=== PATIENT | male | born 1955 | race Caucasian/White ===

== ENCOUNTER 2022-01-21 07:04 | Outpatient (CLI) | payer MEDICARE, SELFPAY ==
--- NOTE | 2022-01-21 07:15 | MR_ITS ---
[address] [address] Phone:?[phone] Fax:?[phone] Referring Physician Information: Joseph Hidalgo M.D. [address] [facility] [address] Phone:?[phone] Fax:?[phone] Patient:Slava Julien D.O.B:?1955 Sex:?Male Phone:?[phone] [facility] MRN:[id number] Exam Date:?01/21/2022 ? EXAM: MRI EXAMINATION OF THE RIGHT KNEE CLINICAL INFORMATION: Right knee pain. No specific injury. History of surgery. TECHNICAL INFORMATION: Coronal PD and STIR. Axial PD and T2 fat saturation. Sagittal PD and PD fat saturation images acquired. INTERPRETATION: Bones: Marked subchondral edema signal and more mild subchondral cystic change involves the weightbearing surface of the medial tibial plateau. Few subchondral cystic changes involving the patellofemoral compartment. No occult fracture or AVN. No other abnormal bone marrow edema pattern is identified. Ligaments and tendons: The medial collateral ligament is intact, without acute sprain or tear. The iliotibial band, fibular collateral ligament, biceps femoris tendon and popliteus tendon all are intact. The anterior cruciate ligament is intact without acute sprain or tear. The posterior cruciate ligament is intact. Extensor Mechanism: The patellar and quadriceps tendons are intact. The medial and lateral retinacula are intact. Knee Joint: There is a moderate size knee joint effusion. No discrete popliteal cyst. Changes of synovitis within the joint, without evidence for a loose body. Medial Compartment: Thickened and irregular, predominant horizontal tearing involves the body of the medial meniscus. There is a complex appearance of tearing throughout the posterior horn as well as continuing into the posterior root insertion. No displaced flap fragment or parameniscal cyst. There are grade 3 and 4 changes of chondromalacia along the mid to peripheral weight-bearing surface of the medial tibial plateau. Broad grade III chondromalacia involves the femoral condyle. Lateral Compartment: Series 7 images 22 and 23 there is a 4 to 5 mm segment of shallow superior surface tear involving the inner portion of the body of the lateral meniscus. No displaced flap fragment or parameniscal cyst. There is no focal chondral defect. No other significant changes of chondromalacia. Patellofemoral articulation: There are grade 2 changes of chondromalacia along the central midline patella and directly adjacent portions of the medial and lateral facets. There is a 1.5 cm craniocaudal by 0.5 cm mediolateral segment of grade 3 and IV chondromalacia of the lateral trochlear groove. CONCLUSION: 1. Tearing throughout the body and posterior horn of the medial meniscus. 2. 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 Marked subchondral edema signal and more mild subchondral cystic change involves the tibial plateau. 3. There is a small and shallow segment of tearing involving the inner portion of the body lateral meniscus. No lateral compartment chondromalacia. 4. Patellofemoral chondromalacia includes a moderate-sized segment of grade III and IV involvement of the lateral trochlear groove. 5. There is a moderate knee joint effusion with synovitis. KES Electronically signed on 01/21/2022 12:39:00 PM by Sushil Cyr M.D.
== END 2022-01-21 07:05 | disposition home or self-care (01) ==
LOC: MRI 07:05
PROVIDERS: PCP Internal Medicine; Visit Provider Orthopaedic Surgery
DX: M25.561 Pain in right knee (principal); M23.221 Derangement of posterior horn of medial meniscus due to old tear or injury, right knee; M94.261 Chondromalacia, right knee; M23.200 Derangement of unspecified lateral meniscus due to old tear or injury, right knee; M25.461 Effusion, right knee
CPT/HCPCS: 73721

== ENCOUNTER 2022-02-17 13:46 | Outpatient (RCR) | payer MEDICARE, SELFPAY ==
--- NOTE | 2022-02-18 12:19 | PT.OPEX ---
PT [facility] PT [facility] Eval Start: 02/17/22 15:33 Freq: Status: Active Protocol: Document 02/17/22 15:34 CARLTON (Rec: 02/17/22 15:35 CARLTON [id number]) E-signed By Myron Ohara DPT, MS Physical Therapy Outpatient Evaluation Insurance Information Recert Due Date 05/18/22 Insurance Name Medicare B Medical Diagnosis Unilateral primary osteoarthritis, right knee Treating Diagnosis Decreased R knee ROM and R LE flexibility, R LE weakness, imbalance, gait dysfunction. Subjective Subjective Patient presents to PT with c/ o chronic B (R>L) knee pain over the past 6-8 months of insidious origin. Describes long hx of episodic B knee pain with previous R meniscectomy 20 years ago. Sxs have improved over the past 2 weeks since MD visit with decreased swelling and tightness. Describes sxs as sharp pain and tightness across B medial knees and patella. Moved from [place] with home renovations causing elevated sxs. Very difficult to climb stairs and squat. MRI of R knee on 01/21/22 found shows degenerative tearing of the medial meniscus with extrusion. There is grade 4 change on the medial tibial plateau with subchondral bone marrow edema and a subchondral cyst. There is grade 3 change on the medial femoral condyle. There is grade 3 change booth attendant the median ridge of the patella with a subchondral cyst. There is a subchondral cyst over the lateral aspect of the trochlea . The cruciate and collateral ligaments are intact. The extensor mechanism is normal. There is tearing of the lateral meniscus. Has not had imaging on his L knee but MD suspects L knee OA. PMH includes DM-II, B knee OA, depression and HTN. Aggravating activities: walking, standing, squatting, stair climbing, up<>down from ground. Relieving: rest, ice Pain Comments 11/01 Current Work Status Bottling Line Attendant Occupation Volunteer work; retired Precautions Therapy Limitations/Systems Review Not Limited Objective Functional Test Performed & Score LEFS: 58 Assessment Assessment/Impression Objectively pt displays decreased B (R>L) knee ROM and B LE flexibility, B LE weakness, imbalance and gait dysfunction. MRI evidence of R knee OA, medial and lateral meniscus tears. Excellent response to recumbent biking and heel slides with improved B knee flexibility and minimal sxs with walking following. Instructed pt in proper gym machine setup and use with excellent response to LE strengthening exercises that avoid strain on the knee. He will benefit from continued skilled PT intervention, progressing as able. Primary Functional Limitations Walking, standing, squatting, stair climbing, up<>down from ground Plan of Care Rehabilitation Potential Good Physical Therapy Goals Within 10 weeks: 1. Patient will be independent and compliant in HEP 2. Patient will be able to walk >10 minutes with R knee pain <3/10 to improve cardiovascular health. 3. Pt will display improved B hip ABD and ext strength of >/ =4+/5 to improve quality of gait and tolerance to yardwork activities. 4. Patient will report >50% improvement in LEFS questionnaire to significantly improve caridad to daily activities. Coordination/Communication With Referral Source Treatment Plan/Direct Interventions Joint Mobilization,Manual Therapy,Neuromuscular Re-ed, Therapeutic Exercises Frequency/Duration 1x per week for 6-10 weeks Patient Will Be Discharged From Therapy Completion of LTG(s),Skills Plateau,Independent w/HEP, Independently Progressing Evaluation Billing Untimed Code Treatment Minutes 24 Complexity Moderate Certification Information Initial Certification Date 02/17/22 Ending Certification Date 05/18/22 Provider Signature Shows Agreement With POC & Medical Necessity Physician Comment/Change Comment or Changes Physician NPI Number #
== END 2022-09-18 15:58 | disposition home or self-care (01) ==
PROVIDERS: PCP Internal Medicine; Visit Provider Orthopaedic Surgery
DX: M17.11 Unilateral primary osteoarthritis, right knee (principal); R26.9 Unspecified abnormalities of gait and mobility; Z51.89 Encounter for other specified aftercare
CPT/HCPCS: 97110; 97162

== ENCOUNTER 2022-07-15 07:31 | Outpatient (CLI) | payer MEDICARE, SELFPAY ==
[2022-07-15 10:59] LABS: Albumin* 4.1 g/dL (3.3-5.0)
[2022-07-15 11:00] LABS: Chloride* 103 mmol/L (96-114); Potassium* 4.3 mmol/L (3.6-5.1); Sodium* 137 mmol/L (135-149)
[2022-07-15 11:02] LABS: Bilirubin Total* 0.7 mg/dL (0.1-1.5); Carbon Dioxide* 27 mmol/L (20-32); Cholesterol* 121 mg/dL (90-199); Creatinine* 0.8 mg/dL (0.5-1.5); Estimated Glomerular Filt Rate 98 ml/min
[2022-07-15 11:03] LABS: Alanine Aminotransferase* 64 U/L (4-50); Alkaline Phosphatase* 99 U/L (40-150); Aspartate Amino Transferase* 45 U/L (12-35); Blood Urea Nitrogen* 15 mg/dL (7-30); Glucose* 166 mg/dL (60-115); Total Protein* 6.7 g/dL (6.0-8.3); Triglycerides* 199 mg/dL (40-149)
[2022-07-15 11:04] LABS: HDL Cholesterol* 44 mg/dL (>=40); LDL Cholesterol Calculated 37 mg/dL (<100)
[2022-07-15 11:13] LABS: Creatinine Urine 108.7 mg/dL
[2022-07-15 11:17] LABS: Microalbumin Creatinine Ratio 0 mg/g (0-30); Microalbumin Urine 1 mg/dL
== END 2022-07-15 07:32 | disposition home or self-care (01) ==
LOC: NFLDREF 07:31
PROVIDERS: PCP Internal Medicine; Visit Provider Internal Medicine
DX: E11.9 Type 2 diabetes mellitus without complications (principal)
CPT/HCPCS: 80053; 80061; 82043; 82570

== ENCOUNTER 2022-09-04 06:15 | Day surgery (SDC) | payer MEDICARE, SELFPAY ==
[2022-09-04] VITALS (12 sets, daily range): BP systolic 110–134; BP diastolic 58–99; PULSE 65–86; RESP 16; TEMP 36.5–36.6; O2SAT 93–98; BMI 33.1
--- OUTSIDE RECORDS SUMMARY | 2022-09-04 06:18 | XMS_ITS | Summary of Care ---
Author Name Unknown Address [address] , [place] [address] Phone Organization [facility] Address [address] , [place] [address] Phone Care Team Providers Care Human Resources Supervisor Name Role Phone ERWIN BOLANOS D.O. Unavailable Unavailab NIRAJ Barnes Unavailable Unavailable Unavailable Unavailable Unavailable Functional Status Functional Status Health Issues Name Dates Details Functional status health iss ues are not documented Status: Cognitive Status Health Issues Name Dates Details Cognitive status health issu es are not documented Status: Problems Name Dates Details Diabetes mellitus(250.00, E1 1.9) Status:Active Dyslipidemia(272.4, E78.5) Status:Active Paroxysmal atrial fibrillati on(427.31, I48.0) Status:Active LETTY on CPAP(327.23, G47.33) Status:Active Medications Name Dates Details * Start :30-Nov-2018 Active metFORMIN HCl - 1000 MG Oral Tablet TAKE 1 TABLET(S) BY MOUTH 2 TIMES A DAY * Quantity:60 Refills:0 * Start :30-Nov-2018 Active Atorvastatin Calcium 10 MG Oral Tablet TAKE 1 TABLET DAILY DIRECTED. * Quantity:30 Refills:0 * Start :30-Nov-2018 Active Medications Administered Name Dates Details Medication Administration no t documented Allergies and Adverse Reactions Name Dates Details No Known Allergies(Allergy) Stat us:Active Procedures Procedure Dates Details History of Vasectomy Completed History of Laparoscopy Completed History of Adenoidectomy Complet ed History of Tonsillectomy Complet ed History of Arthroscopy Completed Immunization Name Dates Details Immunizations not documented Social History Name Dates Details - Status: Smoking Status Name Dates Details Never smoker Vital Signs Date Test Result Details 80-Lkb-070326:00 BP Systolic 110mm[Hg] Status: Results Date Description Value Details [id number] Risk of Stroke [id number] - Risk of Stroke 0.6 % Comments:Age: 63 YearsSex: MCongestive Heart Failure: NoHypertension: NoStroke/TIA/Thromboembolis m: NoVascular Disease: NoDiabetes Mellitus: Yes [id number] - Score 1 Comment s:Age: 63 YearsSex: MCongestive Heart Failure: NoHypertension: NoStroke/TIA/Thromboembolis m: NoVascular Disease: NoDiabetes Mellitus: Yes [id number] - Risk Category Low-Moderate Comments:Age: 63 YearsSex: MCongestive Heart Failure: NoHypertension: NoStroke/TIA/Thromboembolis m: NoVascular Disease: NoDiabetes Mellitus: Yes [id number] - Margo tive Risk For Age And Gender 0 % Comments:Age: 63 YearsSex: MCongestive Heart Failure: NoHypertension: NoStroke/TIA/Thromboembolis m: NoVascular Disease: NoDiabetes Mellitus: Yes Plan of Care Name Dates Details Planned Observations Planned Goals not documented Instructions Name Dates Details Instructions not documented Encounters No Encounter data documented Encounter Diagnosis:Problem not documented On:28-Dec-2018
--- OUTSIDE RECORDS SUMMARY | 2022-09-04 06:18 | XMS_ITS | Summary of Care ---
Author Name Unknown Address [address] , [place] [address] Phone Organization [facility] Address [address] , [place] [address] Phone Care Team Providers Care Stock Wetter Name Role Phone ERWIN BOLANOS D.O. Unavailable Unavailab NIRAJ Barnes Unavailable Unavailable Functional Status Functional Status Health Issues Name Dates Details Functional status health iss ues are not documented Status: Cognitive Status Health Issues Name Dates Details Cognitive status health issu es are not documented Status: Problems Name Dates Details Active medical history not d ocumented Status: Medications Name Dates Details * Start :30-Nov-2018 Active Truvada 200-300 MG Oral Tablet TAKE 1 TABLET DAILY. * Refills:0 * Start :30-Nov-2018 Active Clobetasol Propionate 0.05 % External Cream APPLY SPARINGLY TO AFFECTED AREA(S) TWICE DAILY * Refills:0 * Start :30-Nov-2018 Active metFORMIN HCl - 1000 MG Oral Tablet TAKE 1 TABLET(S) BY MOUTH 2 TIMES A DAY * Quantity:60 Refills:0 * Start :30-Nov-2018 Active Escitalopram Oxalate 10 MG Oral Tablet TAKE 1 TABLET DAILY. * Refills:0 * Start :30-Nov-2018 Active Atorvastatin Calcium [...] smoker Vital Signs Date Test Result Details No Known Vitals to report Results Date Description Value Details Results not documented Plan of Care Name Dates Details Planned Observations Planned Goals not documented Instructions Name Dates Details Instructions not documented Encounters No Encounter data documented Encounter Diagnosis:Problem not documented On:30-Nov-2018
--- OUTSIDE RECORDS SUMMARY | 2022-09-04 06:18 | XMS_ITS ---
Author Name KAI MCKEON Address Unknown Organization Unknown Address Unknown Care Team Providers Care Wildlife Refuge Manager Name Role Phone KAI MCKEON Consulting Provider Unavailable NIRAJ KILGORE Referring Provider Unavailable Problems Description Status Code Diagnosis Date Las t Modified Date Type Source No Data Available Procedures Procedure Code Date Disposition Source No Data Available Allergies, Adverse Reactions, Alerts Type Code Date Description Agent Reaction Status Renetta rce No Data Available Immunizations Vaccine Disposition Route Site Code Date Lot# Manu facturer Name Amount/Unit Source No Data Available Vital Signs Date Height/Length Weight BMIBMI Blood Pressure No Data Available Social History Description Status Code Start Date Quit Date Source No Data Available Medications Drug Name Code Date Form Strength Route Quantity Refills Instruction Status Source No Data Available Results Test Date Status Source No Data Available Plan of Care Notes Date None Specified Description Code Date No Data Available Description Code Date No Data Available Description Code Date No Data Available Provider Date Location No Data Available Reason For Visit Date Reason No Data Available Instructions Patient was supplied with ed ucational material on: No Data Available Instruction Date No Data Available Medications Administered Drug Name Code Date Dosage Strength Route Quantity Sta tus
--- OUTSIDE RECORDS SUMMARY | 2022-09-04 06:18 | XMS_ITS | Summary of Care ---
Author Name Unknown Address [address] , [place] [address] Phone Organization [facility] Address [address] , [place] [address] Phone Care Team Providers Care Digital Camera Technician Name Role Phone ERWIN BOLANOS D.O. Unavailable Unavailab NIRAJ Barnes Unavailable Unavailable Unavailable Unavailable Unavailable Reason for Visit * Health Issues Reviewed: * Diabetes mellitus * Dyslipidemia * Paroxysmal atrial fibrillation * LETTY on CPAP Functional Status Functional Status Health Issues Name [...] smoker Vital Signs Date Test Result Details [id number]-[id number]:00 BP Systolic 110mm[Hg] Status: Results Date Description Value Details [id number] Risk of Stroke [id number] - Risk of Stroke 0.6 % Comments:Age: 63 YearsSex: MCongestive Heart Failure: NoHypertension: NoStroke/TIA/Thromboembolis m: NoVascular Disease: NoDiabetes Mellitus: Yes [id number] - Score 1 Comment s:Age: 63 YearsSex: MCongestive Heart Failure: NoHypertension: NoStroke/TIA/Thromboembolis m: NoVascular Disease: NoDiabetes Mellitus: Yes [id number] - Risk Category Low-Moderate Comments:Age: 63 YearsSex: MCongestive Heart Failure: NoHypertension: NoStroke/TIA/Thromboembolis m: NoVascular Disease: NoDiabetes Mellitus: Yes [id number] - Margo tive Risk For Age And Gender 0 % Comments:Age: 63 YearsSex: MCongestive Heart Failure: NoHypertension: NoStroke/TIA/Thromboembolis m: NoVascular Disease: NoDiabetes Mellitus: Yes Plan of Care Name Dates Details Planned Observations Planned Goals not documented Interventions Provided Instructions* Please follow the verbal and/or written education/instructions provided at your visit.; Done: 01 Dec 2018 Plan* FOLLOW UP: * Cardiology: [ ] or sooner if needed. * Primary Care: As previously directed. * If symptoms worsen and become severe, call 911 or go into the nearest Emergency Department. * Please see orders for plans * This medical document was created using an electronic medical record system with [employer] dictation system. Although this document has been carefully reviewed, there may still be some phonetic typographical errors. These areas are purely typographical due to imperfections of the software programs and do not reflect any compromise in the patient's medical care. Discussion/Summary* Today we reviewed the patient's medication, side effects benefits and needs to continue. We also reviewed plan for continuing follow- up. Please see orders * Will obtain records from other physicians and any hospital testing. Instructions Name Dates Details Instructions not documented Encounters No Encounter data documented Encounter Diagnosis:Problem not documented On:01-Dec-2018
--- OUTSIDE RECORDS SUMMARY | 2022-09-04 06:19 | XMS_ITS | Summary of Care ---
Author Name Unknown Organization [facility] Address [address] [place] [address] Care Team Providers Care Batch Or Continuous Still Operator Name Role Phone Unavailable Primary Care Provider Unavailabl e Reason for Visit * Reason Comments Device Check (Remote) Encounter Details Date Type Department Care Team Description 06/18/2021 Implant Monitor [facility] [address] [place] [address] Darshan Centeno MD [address] [place] [address] Encounter for loop recorder check (Primary Dx); Paroxysmal atrial fibrillation; History of loop recorder Allergies No known active allergiesdocumented as of this encounter (statuses as of 07/03/2021) Medications Medication Sig Dispensed Refills Start Date End Date Status metFORMIN HCl - 1000 MG Oral Tablet TAKE 1 TABLET(S) BY MOUTH 2 TIMES A DAY 0 11/30/2018 Active Omeprazole 20 MG Oral Capsule Delayed Release TAKE 1 CAPSULE DAILY EVERY MORNING BEFORE BREAKFAST. 0 11/30/2018 Active Atorvastatin Calcium 10 MG Oral Tablet TAKE 1 TABLET DAILY DIRECTED. 0 11/30/2018 Active documented as of this encounter (statuses as of 07/03/2021) Active Problems Problem Noted Date Dyslipidemia 12/01/2018 Paroxysmal atrial fibrillation 9 LETTY on CPAP 12/01/2018 Diabetes mellitus 12/01/2018 documented as of this encounter (statuses as of 07/03/2021) Social History Tobacco Use Types Packs/Day Years Used Date Never Assessed Sex Assigned at Date Recorded Not on file documented as of this encounter Plan of Treatment Pending Results Name Type Priority Associated Diagnoses Date/Time Device Interrogation - Remote Cardiac Implant Routine Paroxysmal atrial fibrillation History of loop recorder Encounter for loop recorder check 06/18/2021 11:59 PM PST Health Maintenance Due Date Last Done Comments Hepatitis C Screening 1955 Med Mgmt: HBA1C 1955 Medication Management 1955 Diabetic Eye Exam 08/12/1973 Diabetic Foot Exam 08/12/1973 Hemoglobin A1c Monitoring 08/12/1973 Vaccine: Dtap/Tdap/Td (1 - Tdap) 08/12/1974 Colorectal Cancer Screening (Colonoscopy) 08/12/2005 AAA Screening 08/12/2020 Adult Annual Wellness Visit 01/08/2021 Microalbumin Screening 01/08/2021 Vaccine: Influenza (#1) 2021 02/15/2019 Med Mgmt: Cr 02/15/2021 02/16/2020 Med Mgmt: eGFR 02/15/2021 02/16/2020 Vaccine: Pneumococcal 65+ (2 of 2 - PPSV23) 05/31/2024 05/31/2019 Vaccine: Zoster Completed 12/15/2017, 09/09/2017 COVID-19 Vaccine Completed 02/15/2021, 04/2021, 05/15/2020 documented as of this encounter Procedures Procedure Name Priority Date/Time Associated Diagnosis Comments DEVICE INTERROGATION- REMOTE Routine 06/18/2021 11:59 PM PST Paroxysmal atrial fibrillation History of loop recorder Encounter for loop recorder check documented in this encounter Visit Diagnoses Diagnosis Encounter for loop recorder check- Primary Paroxysmal atrial fibrillation Atrial fibrillation History of loop recorder documented in this encounter
--- OUTSIDE RECORDS SUMMARY | 2022-09-04 06:19 | XMS_ITS | Summary of Care ---
Author Name Unknown Organization [facility] Address [address] [place] [phone] Phone Care Team Providers Care Beam Worker Name Role Phone Ana Lilia Rojas MD Primary Care Provider [phone] Reason for Visit * Reason Comments Device Check (Remote) Encounter Details Date Type Department Care Team Description 02/18/2022 Implant Monitor [facility] [address] [place] [address] Darshan Centeno MD [address] [place] [address] Encounter for loop recorder check (Primary Dx); Paroxysmal atrial fibrillation (HCC); History of loop recorder Allergies No known active allergiesdocumented as of this encounter (statuses as of 03/10/2022) Medications Medication Sig Dispensed Refills Start Date [...] as of this encounter (statuses as of 03/10/2022) Active Problems Problem Noted Date Dyslipidemia 12/01/2018 Paroxysmal atrial fibrillation 9 LETTY on CPAP 12/01/2018 Diabetes mellitus 12/01/2018 documented as of this encounter (statuses as of 03/10/2022) Social History Tobacco Use Types Packs/Day Years Used Date Smoking Tobacco: Never Assessed Sex Assigned at Date Recorded Not on file documented as of this encounter Plan of Treatment Pending Results Name Type Priority Associated Diagnoses Date /Time Device Interrogation - Remote Cardiac Implant Routine Paroxysmal atrial fibrillation (HCC) History of loop recorder Encounter for loop recorder check 02/18/2022 11:59 PM PDT Health Maintenance Due Date Last Done Comments CT Colonography 08/12/1973 ColoGuard 08/12/1973 Colonoscopy 08/12/1973 Colorectal Combination Topic 08/12/1973 FIT 08/12/1973 Sigmoidoscopy 08/12/1973 Vaccine: Dtap/Tdap/Td (1 - Tdap) 08/12/1974 Vaccine: Pneumococcal 65+ (2 - PCV) 05/31/202005/31 COVID-19 Vaccine (4 - Booste r for Pfizer series) 04/12/2021 02/15/2021, 06/05/2020, 05/15/2020 Vaccine: Influenza (#1) 2022 02/15/2019 Vaccine: Zoster Completed 12/15/2017, 09/09/2017 documented as of this encounter Procedures Procedure Name Priority Date/Time Associated Diagnosis Comments DEVICE INTERROGATION- REMOTE Routine 02/18/2022 11:59 PM PDT Paroxysmal atrial fibrillation (HCC) History of loop recorder Encounter for loop recorder check DEVICE INTERROGATION- REMOTE Routine 02/18/2022 11:59 PM PDT Paroxysmal atrial fibrillation (HCC) History of loop recorder Encounter for loop recorder check documented in this encounter Visit Diagnoses Diagnosis Encounter for loop recorder check- Primary Paroxysmal atrial fibrillation (HCC) Atrial fibrillation History of loop recorder documented in this encounter Insurance Payer Benefit Plan / Group Subscriber ID Effective Dates Phone Address Type [employer] MEDICARE PPO [employer] MDCR PPO [id number] 2021-Pres ent [address] [address] [place] [address] Medicare documented as of this encounter Care Teams Beam Worker Relationship Specialty Start Date End Date Ana Lilia Rojas MD [address] [place] [address] PCP - General Internal Medicine 01/30/22 documented as of this encounter
--- OUTSIDE RECORDS SUMMARY | 2022-09-04 06:19 | XMS_ITS | Summary of Care ---
Author Name Unknown Organization [facility] Address [address] [place] [address] Care Team Providers Care Controls Project Engineer Name Role Phone Unavailable Primary Care Provider Unavailabl e Encounter Details Date Type Department Care Team Description 02/05/2021 Orders Only [facility] GENERIC OUTPATIENT CONVERSION [address] [place] [address] Conversion Transaction, Provider Unknown Allergies No known active allergiesdocumented as of this encounter (statuses as of 06/27/2021) Medications Medication Sig Dispensed Refills Start Date [...] as of this encounter (statuses as of 06/27/2021) Active Problems Problem Noted Date Dyslipidemia 12/01/2018 Paroxysmal atrial fibrillation 9 LETTY on CPAP 12/01/2018 Diabetes mellitus 12/01/2018 documented as of this encounter (statuses as of 06/27/2021) Social History Tobacco Use Types Packs/Day Years Used Date Never Assessed Sex Assigned at Date Recorded Not on file documented as of this encounter Plan of Treatment Health Maintenance Due Date Last Done Comments [...]
--- OUTSIDE RECORDS SUMMARY | 2022-09-04 06:19 | XMS_ITS | Summary of Care ---
Author Name Unknown Organization [facility] Address [address] [place] [address] Phone Care Team Providers Care Swimming Professor Name Role Phone Unavailable Primary Care Provider Unavailabl e Reason for Visit * Reason Comments Device Check (Remote) Encounter Details Date Type Department Care Team Description 08/17/2021 Implant Monitor [facility] [address] [place] [address] Darshan Centeno MD [address] [place] [address] Encounter for loop recorder check (Primary Dx); Paroxysmal atrial fibrillation (HCC); History of loop recorder Allergies No known active allergiesdocumented as of this encounter (statuses as of 08/23/2021) Medications Medication Sig Dispensed Refills Start Date [...] as of this encounter (statuses as of 08/23/2021) Active Problems Problem Noted Date Dyslipidemia 12/01/2018 Paroxysmal atrial fibrillation 9 LETTY on CPAP 12/01/2018 Diabetes mellitus 12/01/2018 documented as of this encounter (statuses as of 08/23/2021) Social History Tobacco Use Types Packs/Day Years Used Date Never Assessed Sex Assigned at Date Recorded Not on file documented as of this encounter Plan of Treatment Pending Results Name Type Priority Associated Diagnoses Date /Time Device Interrogation - Remote Cardiac Implant Routine Paroxysmal atrial fibrillation (HCC) History of loop recorder Encounter for loop recorder check 08/17/2021 11:59 PM PDT Health Maintenance Due Date Last Done Comments Hepatitis C Screening 1955 Med Mgmt: HBA1C [address] Colonography 08/12/1973 ColoGuard 08/12/1973 Colonoscopy 08/12/1973 Colorectal Combination Topic 08/12/1973 Diabetic Eye Exam 08/12/1973 Diabetic Foot Exam 08/12/1973 FIT 08/12/1973 Hemoglobin A1c Monitoring 08/12/1973 Sigmoidoscopy 08/12/1973 Vaccine: Dtap/Tdap/Td (1 - Tdap) 08/12/1974 AAA Screening 08/12/2020 Adult Annual Wellness Visit 01/08/2021 Microalbumin Screening 01/08/2021 Med Mgmt: Cr 02/15/2021 02/16/2020 Med Mgmt: eGFR 02/15/2021 02/16/2020 Vaccine: Influenza (Season Ended) 2022 019 Vaccine: Pneumococcal 65+ (2 of 2 - PPSV23) 05/31/2024 05/31/2019 Vaccine: Zoster Completed 12/15/2017, 09/09/2017 COVID-19 Vaccine Completed 02/15/2021, 04/2021, 05/15/2020 documented as of this encounter Procedures Procedure Name Priority Date/Time Associated Diagnosis Comments DEVICE INTERROGATION- REMOTE Routine 08/17/2021 11:59 PM PDT Paroxysmal atrial fibrillation (HCC) History of loop recorder Encounter for loop recorder check documented in this encounter Visit Diagnoses Diagnosis Encounter for loop recorder check- Primary Paroxysmal atrial fibrillation (HCC) Atrial fibrillation History of loop recorder documented in this encounter
--- OUTSIDE RECORDS SUMMARY | 2022-09-04 06:19 | XMS_ITS | Summary of Care ---
Author Name Unknown Organization [facility] Address [address] [place] [address] Phone Care Team Providers Care Food Service Name Role Phone Unavailable Primary Care Provider Unavailabl e Reason for Visit * Reason Comments Device Check (Remote) Encounter Details Date Type Department Care Team Description 10/17/2021 Implant Monitor [facility] [address] [place] [address] Darshan Centeno MD [address] [place] [address] Encounter for loop recorder check (Primary Dx); Paroxysmal atrial fibrillation (HCC); History of loop recorder Allergies No known active allergiesdocumented as of this encounter (statuses as of 11/15/2021) Medications Medication Sig Dispensed Refills Start Date [...] as of this encounter (statuses as of 11/15/2021) Active Problems Problem Noted Date Dyslipidemia 12/01/2018 Paroxysmal atrial fibrillation 9 LETTY on CPAP 12/01/2018 Diabetes mellitus 12/01/2018 documented as of this encounter (statuses as of 11/15/2021) Social History Tobacco Use Types Packs/Day Years Used Date Never Assessed 0 0 Sex Assigned at Date Recorded Not on file documented as of this encounter Plan of Treatment Pending Results Name Type Priority Associated Diagnoses Date /Time Device Interrogation - Remote Cardiac Implant Routine Paroxysmal atrial fibrillation (HCC) History of loop recorder Encounter for loop recorder check 10/17/2021 11:59 PM PDT Health Maintenance Due Date Last Done Comments Hepatitis C Screening 1955 Med Mgmt: HBA1C [address] Colonography 08/12/1973 ColoGuard 08/12/1973 Colonoscopy 08/12/1973 Colorectal Combination Topic 08/12/1973 Diabetic Eye Exam 08/12/1973 Diabetic Foot Exam 08/12/1973 FIT 08/12/1973 Hemoglobin A1c Monitoring 08/12/1973 Sigmoidoscopy 08/12/1973 Vaccine: Dtap/Tdap/Td (1 - Tdap) 08/12/1974 Vaccine: Pneumococcal 65+ (2 - PCV) 05/31/202005/31 AAA Screening 08/12/2020 Adult Annual Wellness Visit 01/08/2021 Microalbumin Screening 01/08/2021 Med Mgmt: Cr 02/15/2021 02/16/2020 Med Mgmt: eGFR 02/15/2021 02/16/2020 Vaccine: Influenza (Season Ended) 2022 019 Vaccine: Zoster Completed 12/15/2017, 09/09/2017 COVID-19 Vaccine Completed 02/15/2021, 04/2021, 05/15/2020 documented as of this encounter Procedures Procedure Name Priority Date/Time Associated Diagnosis Comments DEVICE INTERROGATION- REMOTE Routine 10/17/2021 11:59 PM PDT Paroxysmal atrial fibrillation (HCC) History of loop recorder Encounter for loop recorder check DEVICE INTERROGATION- REMOTE Routine 10/17/2021 11:59 PM PDT Paroxysmal atrial fibrillation (HCC) History of loop recorder Encounter for loop recorder check documented in this encounter Visit Diagnoses Diagnosis Encounter for loop recorder check- Primary Paroxysmal atrial fibrillation (HCC) Atrial fibrillation History of loop recorder documented in this encounter Insurance Payer Benefit Plan / Group Subscriber ID Effective Dates Phone Address Type [facility] [place] P[place] [id number] 2021-[address]ett [address] [place] [address] PPO documented as of this encounter
--- OUTSIDE RECORDS SUMMARY | 2022-09-04 06:19 | XMS_ITS | Summary of Care ---
Author Name Unknown Organization [facility] Address [address] [place] [address] Phone Care Team Providers Care Jewelry Finisher Name Role Phone Unavailable Primary Care Provider Unavailabl e Reason for Visit * Reason Comments Device Check (Remote) Encounter Details Date Type Department Care Team Description 12/18/[address] [facility] [address] [place] [address] Darshan Centeno MD [address] [place] [address] Encounter for loop recorder check (Primary Dx); Paroxysmal atrial fibrillation (HCC); History of loop recorder Allergies No known active allergiesdocumented as of this encounter (statuses as of 01/22/2022) Medications Medication Sig Dispensed Refills Start Date [...] as of this encounter (statuses as of 01/22/2022) Active Problems Problem Noted Date Dyslipidemia 12/01/2018 Paroxysmal atrial fibrillation 9 LETTY on CPAP 12/01/2018 Diabetes mellitus 12/01/2018 documented as of this encounter (statuses as of 01/22/2022) Social History Tobacco Use Types Packs/Day Years Used Date Smoking Tobacco: Never Assessed Sex Assigned at Date Recorded Not on file documented as of this encounter Plan of Treatment Pending Results Name Type Priority Associated Diagnoses Date /Time Device Interrogation - Remote Cardiac Implant Routine Paroxysmal atrial fibrillation (HCC) History of loop recorder Encounter for loop recorder check 12/18/2021 11:59 PM PDT Health Maintenance Due Date [...] 02/15/2021 02/16/2020 Med Mgmt: eGFR 02/15/2021 02/16/2020 COVID-19 Vaccine (4 - Booste r for Pfizer series) 06/17/2021 02/15/2021, 06/05/2020, 05/15/2020 Vaccine: Influenza (#1) 2022 02/15/2019 Vaccine: Zoster Completed 12/15/2017, 09/09/2017 documented as of this encounter Procedures Procedure Name Priority Date/Time Associated Diagnosis Comments DEVICE INTERROGATION- REMOTE Routine 12/18/2021 11:59 PM PDT Paroxysmal atrial fibrillation (HCC) History of loop recorder Encounter for loop recorder check DEVICE INTERROGATION- REMOTE Routine 12/18/2021 11:59 PM PDT Paroxysmal atrial fibrillation (HCC) History of loop recorder Encounter for loop recorder check documented in this encounter Visit Diagnoses Diagnosis Encounter for loop recorder check- Primary Paroxysmal atrial fibrillation (HCC) Atrial fibrillation History of loop recorder documented in this encounter Insurance Payer Benefit Plan / Group Subscriber ID Effective Dates Phone Address Type [facility] [place] PPO [id number] 2021-[address]ylene pickett [address] [place] [address] PPO documented as of this encounter
--- OUTSIDE RECORDS SUMMARY | 2022-09-04 06:19 | XMS_ITS | Summary of Care ---
Author Name Unknown Address [address] , [place] [address] Phone Organization [facility] Address [address] , [place] [address] Phone Care Team Providers Care Compliance Assistant Name Role Phone ERWIN BOLANOS D.O. Unavailable [...] smoker Vital Signs Date Test Result Details [id number] BP Systolic 110mm[Hg] Status: Results Date Description Value Details [id number] Risk of Stroke [id number] - Risk of Stroke 0.6 % Comments:Age: 63 YearsSex: MCongestive Heart Failure: NoHypertension: NoStroke/TIA/Thromboembolis m: NoVascular Disease: NoDiabetes Mellitus: Yes [id number] - Score 1 Comment s:Age: 63 YearsSex: MCongestive Heart Failure: NoHypertension: NoStroke/TIA/Thromboembolis m: NoVascular Disease: NoDiabetes Mellitus: Yes [id number] - Risk Category Low-Moderate Comments:Age: 63 YearsSex: MCongestive Heart Failure: NoHypertension: NoStroke/TIA/Thromboembolis m: NoVascular Disease: NoDiabetes Mellitus: Yes [id number] - Margo tive Risk For Age And [...] using an electronic medical record system with [employer] dictation system. Although this document has been [...] records from other physicians and any hospital testing * Plan to adjust medications based on the results of testing and patient tolerance of medication. * Goals of medical therapy reviewed with the patient at length. * Portal and Patient Education: * Thank you for trusting us with your care. Please visit our Patient Portal at [email or web address] to view, download and transmit your health information as well as review educational materials about your conditions and medications. Click the 'I need to sign up' button if you are not yet registered or simply Sign In. After registering for Follow My Health you have the option to access your health data through 3rd democrat applications such as [employer] ([email or web address]). * BMI: * Body Mass Index (BMI) can help you see if your weight is raising your risk for health problems. It uses a formula to compare how much you weigh with how tall you are. A BMI between 18.5 and 24.9 is considered healthy. A BMI over 25 is considered overweight. A BMI of 18.4 or lower is considered underweight. As we discussed in today???s visit please try to incorporate exercise and healthy eating inyour daily habits. Instructions Name Dates Details Instructions not documented Encounters No Encounter data documented Encounter Diagnosis:Problem not documented On:04-Apr-2019
--- NOTE | 2022-09-04 06:46 | SUR.PREOP ---
negative home covid
[2022-09-04] MEDS: LACTATED RINGERS 1000 ML 1,000 ML 100 ML IV ×2 (06:50→08:26)
[2022-09-04] MEDS: SODIUM CHLORIDE 0.9 % (FLUSH) 10 ML SYRINGE IVF (06:54)
--- NOTE | 2022-09-04 07:14 | W.ANESCHARGE ---
Anesthesia Charges Start Date/Time Anesthesia Start Date: 09/04/22 Anesthesia Start Time: 07:28 Stop Date/Time Anesthesia Stop Date: 09/04/22 Anesthesia Stop Time: 08:42
[2022-09-04] MEDS: CEFAZOLIN 2 GM INJ IVP (07:38)
[2022-09-04] MEDS: BUPIVACAINE 0.5% 30 ML INJECTION (07:45)
--- NOTE | 2022-09-04 08:33 | PM.GSPRC ---
Operative Note Date of procedure: 09/04/22 Pre-op diagnosis: Umbilical hernia Post-op diagnosis: Same Type of Procedure: Open umbilical hernia repair with placement of mesh Indications: Patient is a 67-year-old male who presented to clinic with a symptomatic umbilical hernia. Different treatment options were reviewed, including observation versus operative intervention. Risks and benefits of operative intervention were discussed at length with the patient. Risks included but was not limited to: Bleeding, infection, risk of damage to surrounding structures, possible need for additional procedures, risk of recurrence and postoperative complications such as pneumonia, pulmonary emboli or MT. All questions and concerns were addressed with the patient agreeing to proceed. Procedure Description: After discussing the risks and benefits of the procedure, the patient signed informed consent.? The operative site was marked and the patient was brought to the operating room and placed on the operating table in supine position.? Care was taken to pad the patient's pressure points.?? The patient was then intubated by anesthesia.?? The operative site was then prepped and draped in the usual sterile fashion.? A time-out was then performed. A curvilinear incision was made at the umbilicus. Dissection was carried down into the subcutaneous tissue using cautery. The hernia sac was encountered and care was taken to not enter it. Dissection was taken down to the fascia, and the umbilical stock was carefully dissected off of the hernia sac. Once the hernia sac was dissected out circumferentially, it was reduced. The fascial edges were then cleared circumferentially. The hernia was 2 cm in size and so the decision was made to use a piece of mesh. A preperitoneal pocket was created using a combination of blunt dissection and cautery. Hemostasis appeared adequate. Once the posterior fascia was clear, a piece of small Ventralex ST hernia mesh was placed in the preperitoneal space with care to ensure that it laid flat. This was secured into place using 2 0 PDS interrupted sutures. The tails were then trimmed and the fascial opening was closed with a running 0 Vicryl. Local anesthetic was injected into the fascia, skin and subcutaneous tissues. The umbilicus was reapproximated to the fascia. The skin was then closed with running absorbable suture. A sterile dressing was then applied. ? The patient was then woken and transported to the recovery area in stable condition. ? The patient tolerated the procedure well. Findings: 2 cm umbilical hernia, repaired with mesh. Anesthesia: GETA Surgeon: Fanny Irby MD Estimated blood loss (mL): 5 Condition: stable Disposition: same day
--- NOTE | 2022-09-04 08:42 | W.ANESCHARGE ---
Anesthesia Charges Start Date/Time Anesthesia Start Date: 09/04/22 Anesthesia Start Time: 07:28 Stop Date/Time Anesthesia Stop Date: 09/04/22 Anesthesia Stop Time: 08:42
== END 2022-09-04 10:38 | disposition home or self-care (01) ==
PROVIDERS: PCP Internal Medicine; Visit Provider Surgery
PROC: (CPT 49591; principal; 2022-09-04 07:30)
DX: K42.9 Umbilical hernia without obstruction or gangrene (principal)
CPT/HCPCS: 49591; 00830; 82962; C1781; J0330; J0690; J1100; J2250; J2405; J2704; J2710; J3010; J3490; J7120

== ENCOUNTER 2022-12-26 16:10 | Outpatient (CLI) | payer MEDICARE, SELFPAY | END 2022-12-26 16:11 | disposition home or self-care (01) | PROVIDERS: PCP Internal Medicine; Visit Provider Internal Medicine | DX: E11.9 Type 2 diabetes mellitus without complications (principal); E66.9 Obesity, unspecified | CPT/HCPCS: 84450; 84460 ==

== ENCOUNTER 2023-03-31 07:59 | Outpatient (CLI) | payer MEDICARE, SELFPAY ==
--- OUTSIDE RECORDS SUMMARY | 2023-03-31 08:02 | XMS_ITS | Patient Health Record ---
Author Name Unknown Organization [facility] Address [address] [place], [place] [address] Care Team Providers Care Electron Tube Assembler Name Role Phone Ana Lilia Rojas Primary Care Provider Kris José Unavailable [phone] ALLERGIES No Known Allergies REASON FOR REFERRAL No Information MEDICATIONS Medication SIG (Take, Route, Frequency, Duration) Notes Start Date End Date Status Mupirocin 2 % 1 application Automatic Fabric Cutter ally Twice a day for 14 days 09/24/2021 Active Atorvastatin Calcium Unknown Escitalopram &[id number] Unknown Omeprazole Unknown Metformin & Diet Manage Prod Unknown Efudex 5 % 1 application Automatic Fabric Cutter ally Twice a day to scalp for 2 weeks. Use focally to right scalp lesion for 4 weeks 09/13/2021 Unknown Picato 0.015 % 1 application to aff ected area Externally Once a day for 3 day(s) 03/11/2018 Unknown Clobetasol cream Unk nown SOCIAL HISTORY Sex Assigned At : Social History Observation Description Sex Assigned At Unknown PROBLEMS Problem Type ICD Code Onset Dates Problem Status W/U Status Risk SNOMED Code Notes Problem SKs (L82.1) Active confirmed Seborrheic keratosis (516315229) Problem Actinic keratosis (L57.0) Active confirmed Actinic keratosis (505502114) Problem Inflamed seborrheic keratosis (L82.0) Active confirmed Inflamed seborrheic keratosis (407873062) Problem Personal history of malignant melanoma of skin (Z85.820) 03/11/2018 Active confirmed History of malignant melanoma of the skin (433959496982) Problem Personal history of other malignant neoplasm of skin (Z85.828) Active confirmed History of malignant neoplasm of skin (445161789) Problem Eczema (L30.9) Active confirmed Eczema (43167831) Problem 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) Active confirmed Squamous cell carcinoma of scalp (758490100) PLAN OF TREATMENT No Information Insurance Providers Payer Name Payer Address Payer Phone Subscriber Number Group Number Insured Name Patient Relationship to Insured Coverage Start Date Coverage End Date [facility] [address] [place] [address] [id number] Kelby Julien Self - patient is the insured MEDICAL (GENERAL) HISTORY Medical History History ICD Code asthma Depression Type 1 diabetes Dermatitis Actinic Keratosis Eczema Genital Warts Warts Surgical History Surgery Date(Month/Year) Basal Cell Removed gallbladder Knee Surgery Mastoidectomy
--- NOTE | 2023-03-31 08:15 | MR_ITS ---
[address] [address] Phone:?[phone] Fax:?[phone] Referring Physician Information: Joseph Hidalgo M.D. [address] [facility] [address] Phone:?[phone] Fax:?[phone] Patient:Slava Julien D.O.B:?1955 Sex:?Male Phone:?[phone] [facility] MRN:?[id number] Exam Date:?03/31/2023 EXAM: MRI of the RIGHT SHOULDER, without contrast CLINICAL INFORMATION: Male, 67 years old, with right shoulder pain. INDICATION: Evaluate for rotator cuff tear. PRIOR SURGERY: None reported. PLAIN FILMS: None available. COMPARISONS: No prior MRIs available. TECHNICAL INFORMATION: Using a 1.5T MR scanner and a localizing surface coil: coronal obliques: PD, T2, PDFS, STIR sagittal obliques: PD, T2 axials: T1, PDFS SEDATION: None CONTRAST: None FINDINGS: Bones: Proximal humerus: No fracture or marrow edema/pathology. No humeral Hill-Sachs or reverse Hill-Sachs lesion/impaction or contusion. Glenoid: No fracture or marrow edema/pathology. No osseous Bankart lesion. Rotator cuff and muscles/tendons: Supraspinatus: Moderate supraspinatus tendinopathy with a 9 x 9 mm area of near full-thickness anterior insertional footprint tearing (sagittal T2 series 9 image 6 and coronal PDFS series 5 image 12). No tendon retraction or muscle atrophy. Additionally, there is an 11 x 5 x 10 mm region of calcific tendinosis within the central distal tendon fibers (sagittal PD series 8 image 6 and axial PDFS series 4 image 13). Infraspinatus: Mild-moderate infraspinatus tendinopathy, without tendon tear or muscle atrophy. Teres minor: No tendinopathy, tear or atrophy. Subscapularis: Moderate tendinopathy of the superior distal subscapularis, without tendon tear or muscle atrophy. Deltoid: No strain or atrophy. Coracoacromial arch: Acromion morphology: The acromion has type II morphology. No discrete subacromial osseous spur or os acromiale. Acromiohumeral space: The acromiohumeral space measures 5.9 mm at its narrowest point (osseous distance). Coracohumeral space: The coracohumeral space is within normal limits. Acromioclavicular joint: Joint: Moderate-marked AC joint arthropathy, with 5 mm of inferior osteophytosis, which effaces the underlying supraspinatus (sagittal T2 series 9 image 17 and coronal PDFS series 5 image 15). Ligaments: Coracoclavicular ligaments are intact. Bursae: Subacromial-subdeltoid: Mild subacromial-subdeltoid bursitis. Subcoracoid: No convincing subcoracoid bursal thickening/bursitis. Biceps tendon: The long head of the biceps tendon is present within the bicipital groove. Mild tendinopathy of the intra-articular biceps long head tendon, without split/tear. Glenohumeral joint: Effusion/cyst: No significant glenohumeral joint effusion. Articular cartilage: Humeral head: Mild thinning of the articular cartilage is present throughout the medial aspect of the humeral head, with minimal inferomedial marginal osteophytosis. Glenoid: Mild thinning of the glenoid articular cartilage, with mild anterior and posterior marginal osteophytosis. Loose bodies: No discrete intra-articular body within the joint. Labrum:?Circumferential degeneration and fraying of the labrum, which is of doubtful clinical significant. Inferior glenohumeral ligament/axillary pouch:?Mild-moderate thickening of inferior capsuloligamentous structures (coronal PD series 6 images 13-18). Additionally, there is soft tissue thickening throughout the rotator interval (sagittal PD series 8 images 11-16). IMPRESSION: 1. Moderate supraspinatus tendinopathy with a 9 x 9 mm area of near full- thickness anterior insertional footprint tearing as well as a 10 x 5 x 11 mm region of superimposed calcific tendinosis. 2. Mild-moderate infraspinatus and moderate subtalar tendinopathy, without tear. 3. Mild narrowing of the acromiohumeral space with mild subacromial-subdeltoid bursitis. Additionally, inferior osteophytosis from moderate-marked AC joint arthropathy effaces the underlying supraspinatus. 4. Findings in keeping with any clinical symptoms of adhesive capsulitis. 5. Slight approaching mild osteoarthritis of the glenohumeral joint. 6. Mild tendinopathy of the intra-articular biceps long head tendon, without split/tear. 7. Circumferential degeneration and fraying of the labrum, which is of doubtful clinical significance. BC Electronically signed on 03/31/2023 11:14:00 AM by Yung Wallace M.D.
== END 2023-03-31 08:00 | disposition home or self-care (01) ==
LOC: MRI 08:00
PROVIDERS: PCP Internal Medicine; Visit Provider Orthopaedic Surgery
DX: M25.511 Pain in right shoulder (principal); M75.101 Unspecified rotator cuff tear or rupture of right shoulder, not specified as traumatic; M75.51 Bursitis of right shoulder; M75.01 Adhesive capsulitis of right shoulder; S46.211A Strain of muscle, fascia and tendon of other parts of biceps, right arm, initial encounter; M19.011 Primary osteoarthritis, right shoulder
CPT/HCPCS: 73221

== ENCOUNTER 2023-05-07 06:53 | Day surgery (SDC) | payer MEDICARE, SELFPAY ==
[2023-05-07] VITALS (16 sets, daily range): BP systolic 116–138; BP diastolic 66–78; PULSE 60–73; RESP 16–18; TEMP 36.3–36.9; O2SAT 92–95; BMI 33.2
[2023-05-07] MEDS: fentaNYL 100 MCG/2 ML inj IVP (07:18)
[2023-05-07] MEDS: MIDAZOLAM HCL 1 MG/ML inj IVP (07:18)
[2023-05-07] MEDS: OXYCODONE (CR) 10 MG TAB.ER.12H PO (07:30)
[2023-05-07] MEDS: ACETAMINOPHEN 500 MG TABLET 1000 MG PO (07:30)
[2023-05-07] MEDS: CELECOXIB 200 MG CAPSULE PO (07:30)
[2023-05-07] MEDS: SODIUM CHLORIDE 0.9 % (FLUSH) 10 ML SYRINGE IVF (07:35)
[2023-05-07] MEDS: LACTATED RINGERS 1000 ML 1,000 ML 100 ML IV ×2 (07:35→09:27)
--- NOTE | 2023-05-07 08:20 | SUR.PREOP ---
TIME?OUT:?0818 PT/RN/MDA?VERIFICATION?OF?SURGICAL?SITE,?PROCEDURE,?AND?CONSENT OBTAINED?PRIOR?TO?INVASIVE?PROCEDURE.
[2023-05-07] MEDS: CEFAZOLIN 2 GM INJ IVP (08:57)
--- NOTE | 2023-05-07 10:05 | PM.ORPRC ---
Procedure Note Date of procedure: 05/07/23 Procedure: PREOPERATIVE DIAGNOSIS: Right shoulder rotator cuff tear, AC joint arthrosis POSTOPERATIVE DIAGNOSIS: Right shoulder rotator cuff tear, AC joint arthrosis NAME OF OPERATION: Right shoulder arthroscopic subacromial decompression, distal clavicle excision, mini open rotator cuff repair SURGEON: Joseph Hidalgo MD ASSURANCE SOURCING MANAGER: Joi Leavitt PA-C ANESTHESIA: Supraclavicular block plus general endotracheal ESTIMATED BLOOD LOSS: 15 mL COMPLICATIONS: None SPECIMENS: None DRAINS: None PREOPERATIVE ANTIBIOTICS: Ancef 2 grams INDICATIONS: The patient is a 67-year-old with a history of right shoulder pain secondary to the above diagnoses. Despite appropriate non operative management, they continue to have symptoms. Operative intervention was recommended. The risks, benefits and expected outcomes were discussed in detail. These included but were not limited to: Infection, bleeding, injury to blood vessel or nerve, venous thromboembolism. All questions were answered to their satisfaction. PROCEDURE: A supraclavicular block was placed by Anesthesia. General anesthesia was administered. The patient was placed in the high beach chair position. The right shoulder was prepped and draped in the usual sterile fashion. The glenohumeral joint was infiltrated with 20 mL of normal saline with epinephrine. The posterior portal was established, the arthroscope was introduced. The anterior portal was established, Diagnostic arthroscopy was performed with findings as follows: The biceps and biceps anchor are intact. The anterior, posterior and superior labrum are normal. Articular surfaces on the humeral head and glenoid are normal. There are no loose bodies. There is high-grade partial-thickness tearing of undersurface of the insertion of the supraspinatus, into the infraspinatus. The arthroscope was placed in the subacromial space, the lateral portal was established. The Arthrex [place] was used to dissect the acromion free. The CA ligament was recessed off the anterior acromion, the AC joint was exposed. The acromioplasty was performed with the bur in the posterior portal. The bur was then placed in the lateral portal and the lateral and anterior aspect of the acromion were resected. The undersurface of the distal clavicle was resected through the lateral portal. Finally, the bur was placed in the anterior portal and the remainder of the distal clavicle was resected for a total of 10 mm. An accessory anterolateral portal was placed. The subacromial/subdeltoid bursa was aggressively debrided. The bursal surface of the rotator cuff appears thin and at supraspinatus insertion. There may be a tiny area of calcific tendinitis. Arthroscopic instruments were removed. The accessory anterolateral portal was extended proximally and distally, subcutaneous dissection was taken with electrocautery to the deltoid. The deltoid was divided in line with its fibers. The static retractor was placed. The subacromial/subdeltoid bursa was debrided with the Parham scissors. The remaining bursal fibers of the insertion of the supra and infraspinatus were released with 15 blade, creating a full-thickness tear. The greater tuberosity was debrided to punctate bleeding bone using the arthroscopic bur. Two Arthrex BioComposite SwiveLock anchors were placed just off the articular surface. Both limbs of the FiberWire and fiber tape were passed using the scorpion. A fiber link was placed in the leading edge of the rotator cuff x2. We tied the 2 central FiberWire sutures over the rotator cuff. We then proceeded with a lateral row of SwiveLock anchors x 2 crossing the FiberTape and incorporating the FiberWire and fiber link into each lateral row anchor. The suture on the eyelet was passed through the leading edge of the rotator cuff both anteriorly and posteriorly, resulting in a simple suture to each anchor. This provides an anatomic, watertight repair of the rotator cuff. There is no tension on the repair with the shoulder at 0? abduction. The wound was irrigated with normal saline off the pump. The deltoid was repaired with an 0 Vicryl in an interrupted [id number] fashion. Subcutaneous tissues were closed with a 3-0 Vicryl. Skin was closed with a 3-0 Monocryl in a subcuticular fashion. A dry dressing, polar care and sling were applied. Sponge and needle counts were correct x2. The patient tolerated the procedure well. There were no apparent complications. They were carefully transferred to the hospital bed and taken to the postanesthesia care unit in satisfactory condition. PLAN: The patient will be discharged to home. No active range of motion of the shoulder will be allowed for 6 weeks postoperatively. They can work on active range of motion of the elbow, wrist and fingers. They will follow up in the office next week for a wound check and an AP and transscapular Y-view of the shoulder prior to being seen.
--- NOTE | 2023-05-07 10:38 | W.ANESCHARGE ---
Anesthesia Charges Start Date/Time Anesthesia Start Date: 05/07/23 Anesthesia Start Time: 08:37 Stop Date/Time Anesthesia Stop Date: 05/07/23 Anesthesia Stop Time: 10:35
--- NOTE | 2023-05-07 14:46 | P.NB_ITS ---
Nerve Block Nerve Block Time Seen by Provider: 08:25 Date Seen: 05/07/23 Type of block requested by surgeon for post-operative analgesia: supraclavicular Side: right Time out performed: Yes Verification of patient name: Yes Verification of date of : Yes Site marking: site marked Name of person performing procedure: Stef Assistants, if any: Wilmer Continuous monitoring Was continuous monitoring of O2 sat, B/P, school lunch monitor, recorded every 15 minutes?: Yes Procedure Checklist: sterile prep, needles and gloves Ultrasound guided. Images saved: Yes Medications given in 5ml increments after negative aspiration: Ropivicaine %: 0.5 mL: 20 Needle gauge: 22 Decadron (mg): 10 Precedex (mcg): 25 Patient tolerated procedure well: Yes Block Charges Block Charge (with Pro Fee): Brachial Plexus Use of Ultrasound Machine for Block: Yes- US Guidance/pain block
--- NOTE | 2023-05-07 14:47 | W.ANESCHARGE ---
Anesthesia Charges Start Date/Time Anesthesia Start Date: 05/07/23 Anesthesia Start Time: 08:37 Stop Date/Time Anesthesia Stop Date: 05/07/23 Anesthesia Stop Time: 10:35
== END 2023-05-07 12:45 | disposition home or self-care (01) ==
PROVIDERS: PCP Internal Medicine; Visit Provider Orthopaedic Surgery
PROC: (CPT 23412; principal; 2023-05-07 09:00)
DX: M75.101 Unspecified rotator cuff tear or rupture of right shoulder, not specified as traumatic (principal); M19.011 Primary osteoarthritis, right shoulder; G89.18 Other acute postprocedural pain
CPT/HCPCS: 29826; 29824; 23412; 01630; 64415; 76942; 82962; A9270; C1713; J0330; J0690; J1100; J2250; J2405; J2795; J3010; J7120

== ENCOUNTER 2023-07-03 08:04 | Outpatient (CLI) | payer MEDICARE, SELFPAY ==
--- OUTSIDE RECORDS SUMMARY | 2023-07-06 09:03 | XMS_ITS | Clinical Summary ---
Author Name Unknown Organization [facility] Address [address] [place] [address] Care Team Providers Care Poultry Cutter Name Role Phone Ana Lilia Rojas MD Primary Care Provider [phone] Source Comments This information has been disclosed to you from records protected by Federal confidentiality rules (42 CFR part 2). The Federal rules prohibit you from making any further disclosure of this information unless further disclosure is expressly permitted by the written consent of the person to whom it pertains or as otherwise permitted by 42 CFR part 2. A general authorization for the release of medical or other information is NOT sufficient for this purpose. The Federal rules restrict any use of the information to criminally investigate or prosecute any alcohol or drug abuse patient.[facility] Allergies No known active allergies Medications Medication Sig Dispensed Refills Start Date End Date Status emtricitabine/tenofov ir (TRUVADA) 200mg/300mg Tab Take 1 Tab by mouth daily 0 Active metFORMIN (GLUCOPHAGE) 1000mg Tab Take 1,000 mg by mouth twice daily with breakfast and dinner 0 Active omeprazole (PRILOSEC) 20mg DR Cap Take 20 mg by mouth daily 0 Active escitalopram (LEXAPRO) 10mg Tab Take 10 mg by mouth daily 0 Active atorvastatin (LIPITOR) 20mg Tab Take 20 mg by mouth daily 0 Active Adult Unspecified OrderIndications:scop alomine patch prn 0 Active HYDROcodone/acetamino phen (NORCO 5) 5mg/325mg TabIndications:Melano ma of cheek (CMS/HCC) Take 1-2 Tabs by mouth every 4 hours as needed for Pain 30 Tab 0 05/20/2018 Active Active Problems Problem Noted Date Diagnosed Date Hx of atrial fibrillation without current medica tion HLD (hyperlipidemia) GERD (gastroesophageal reflux disease) Social History Tobacco Use Types Packs/Day Years Used Date Smoking Tobacco: Never Smokeless Tobacco: Never Sex and Gender Information Value Date Recorded Sex Assigned at Not on file Gender Identity Not on file Sexual Orientation Not on file Last Filed Vital Signs Vital Sign Reading Time Taken Comments Blood Pressure 120/80 05/28/2018 3:59 PM PST Pulse 70 05/28/2018 3:59 PM PST Temperature 36.8 ??C (98.2 ??F) 05/20/2018 4:30 PM PS T Respiratory Rate 14 05/20/2018 4:30 PM PST Oxygen Saturation 93% 05/20/2018 4:30 PM PST Inhaled Oxygen Concentration - - Weight 112.8 kg (248 lb 10.9 oz) 2017 10:02 AM PST Height 185.4 cm (6' 1) 05/20/2018 10:0 2 AM PST Body Mass Index 32.81 05/20/2018 10:02 AM PST Plan of Treatment Health Maintenance Due Date Last Done Comments COVID-19 Vaccine (#1) 02/13/1956 LIPID SCREENING 08/12/1965 HEPATITIS C SCREENING 08/12/1973 DTaP,Tdap,or Td Vaccine (1 - Tdap) 08/12/1974 COLORECTAL CANCER SCREENING DISCUSSION 08/12/2000 ZOSTER VACCINE (Shingrix w/w o Zostavax) (1 of 2) 08/12/2005 ADVANCE DIRECTIVE DISCUSSION 08/12/2020 PNEUMOCOCCAL VACCINE 65+ YEA RS (1 of 1 - PCV) 08/12/2020 INFLUENZA VACCINE 12/23/2022 HPV VACCINE Aged Out No longer eligi ble based on patient's age to complete this topic MENINGOCOCCAL ACWY VACCINE Aged Out N o longer eligible based on patient's age to complete this topic Advance Directives For more information, please contact: [phone] Latest Code Status on File Code Status Date Activated Date Inactivated Comments FULL 05/20/2018 12:50 PM Question Answer Comments In ARREST situations: Attempt FULL resus citative efforts (No Restrictions) Care Teams Poultry Cutter Relationship Specialty Start Date End Date Ana Lilia Rojas MD [address] [place] [phone] PCP - General Internal Medicine 05/19/18
--- OUTSIDE RECORDS SUMMARY | 2023-07-06 09:03 | XMS_ITS | Clinical Summary ---
Author Name Unknown Organization [facility] [employer] [facility] Address [facility] [address] [place] [address] Care Team Providers Care Film Recordist Name Role Phone Ana Lilia Rojas MD Primary Care Provider Allergies No known active allergies Medications Medication [...] 1 TABLET DAILY DIRECTED. 0 11/30/2018 Active Active Problems Problem Noted Date Diagnosed Date Dyslipidemia 12/01/2018 Paroxysmal atrial fibrillation 12/01/2018 LETTY on CPAP 12/01/2018 Diabetes mellitus 12/01/2018 Family History Medical History Relation Comments Crohn's disease Brother Family history o f Crohn's disease Heart disease Father Family history o f cardiac disorder Prostate cancer Father Family history o f malignant neoplasm of prostate Depression Mother Family history o f depression Relation Status Comments Brother Father Mother Social History Tobacco Use Types Packs/Day Years Used Date Smoking Tobacco: Never Assessed Sex and Gender Information Value Date Recorded Sex Assigned at Not on file Gender Identity Not on file Sexual Orientation Not on file Last Filed Vital Signs Vital Sign Reading Time Taken Comments Blood Pressure 110/60 12/01/2018 10:00 AM PDT Pulse 79 12/01/2018 10:00 AM PDT Temperature - - Respiratory Rate - - Oxygen Saturation 97% 12/01/2018 10:00 AM PDT Inhaled Oxygen Concentration - - Weight 117 kg (258 lb) 12/01/2018 10:00 AM PDT Height - - Body Mass Index - - Plan of Treatment Health Maintenance Due Date Last Done Comments CT Colonography 08/12/1973 ColoGuard 08/12/1973 Colonoscopy 08/12/1973 Colorectal Combination Topic 08/12/1973 FIT 08/12/1973 Sigmoidoscopy 08/12/1973 Vaccine: Dtap/Tdap/Td (1 - Tdap) 08/12/1974 Vaccine: Pneumococcal 65+ (2 of 2 - PCV) 08/12/2020 05/31/2019 COVID-19 Vaccine (4 - season) 2023 02/15/2021, 06/05/2020, 05/15/2020 Vaccine: Influenza (#1) 2023 02/15/2019 Vaccine: Zoster Completed 12/15/2017, 09/09/2017 Care Teams Film Recordist Relationship Specialty Start Date End Date Ana Lilia Rojas MD [address] [place] [phone] PCP - General Internal Medicine 01/30/22
--- OUTSIDE RECORDS SUMMARY | 2023-07-06 09:03 | XMS_ITS | Clinical Summary ---
Author Name Unknown Organization [facility] Address [facility] Medical/[address] [facility] [address] [facility] [place] [address] Care Team Providers Care Cocoa Powder Mixer Operator Name Role Phone Ana Lilia Rojas Barak Primary Care Provider [phone] Allergies No known active allergies Medications No known medications Family History Medical History Relation Name Comments Crohn's disease Brother Coronary Artery Disease Father Prostate Cancer Father Crohn's disease Mother Relation Name Status Comments Brother Father Mother Social History Tobacco Use Types Packs/Day Years Used Date Smoking Tobacco: Never Assessed Sex and Gender Information Value Date Recorded Sex Assigned at Not on file Gender Identity Not on file Sexual Orientation Not on file Last Filed Vital Signs Vital Sign Reading Time Taken Comments Blood Pressure 130/80 05/11/2018 2:05 PM PST Pulse 76 05/11/2018 2:05 PM PST Temperature - - Respiratory Rate 12 05/11/2018 2:05 PM PST Oxygen Saturation - - Inhaled Oxygen Concentration - - Weight - - Height - - Body Mass Index - - Plan of Treatment Health Maintenance Due Date Last Done Comments Discuss Risks and Benefits of PSA 1955 PSA Discussion Benefits and Risk 1955 PSA Discussion PASSENGER LOCOMOTIVE ENGINEER 1955 Covid-19 Vaccine (#1) 02/13/1956 HEPATITIS C SCREENING 08/12/1973 DTAP/TDAP/TD (1 - Tdap) 08/12/1974 Shingrix (Zoster) (1 of 2) 08/12/2005 Advance Care Planning 08/12/2020 Fall Risk Assessment 08/12/2020 Pneumococcal vaccine 65+ (1 - PCV) 08/12/2020 INFLUENZA 12/23/2022 HPV VACCINE Aged Out No longer eligi ble based on patient's age to complete this topic Care Teams Cocoa Powder Mixer Operator Relationship Specialty Start Date End Date Ana Lilia Rojasing [address] [place] [id number] PCP - General INTERNAL MEDICINE 04/22/18
--- OUTSIDE RECORDS SUMMARY | 2023-07-06 09:03 | XMS_ITS | Continuity of Care Document ---
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 7 06/03/2018 [facility] Ophthalmology Depression(Confirm ed) 03/04/2019 [facility] Cancer [facility] Gastroenterology ,[facility] Ophthalmology,[facility] Diabetes type 2(Confirmed) 03/04/2019 [facility] Gastroenterology ,[facility] Ophthalmology,[facility] GERD (gastroesophageal reflux disease)(Confirmed ) 03/04/2019 [facility] Gastroenterology ,[facility] Ophthalmology,[facility] Histoplasmosis Retinitis(Confirme d) 03/04/2019 [facility] Cancer [facility] Gastroenterology ,[facility] Ophthalmology,[facility] Melanoma in situ(Confirmed) 03/04/2019 [facility] Obesity(Confirmed) 03/04/2019 [facility] Gastroenterology ,[facility] Ophthalmology,[facility] PTSD (post-traumatic stress disorder)(Confirme d) 03/04/2019 [facility] Gastroenterology ,[facility] Ophthalmology,[facility] Encounter for general adult medical examination without abnormal findings 05/21/[address] [facility] Encounter for screening for infections with a predominantly sexual mode of transmission 05/21/[address] [facility] Encounter for screening for malignant neoplasm of prostate 05/21/[address] [facility] Mixed hyperlipidemia 05/21/2018 75 [facility] Type 2 diabetes mellitus without complications 05/21/2018 75 [facility] Medications Medication Details Route Status Patient Instructions Ordering Provider Order Date Source levalbuterol CFC free 45 mcg/inh Inhaler with adapter = 2 Puff, INH, Q4H, # 1 ea, 3 Refill(s), Maintenance, Pharmacy: [facility] Active [facility] rology,[facility] Ophthalmol ogy,[facility] escitalopram 10 mg oral tablet = 1 Tab, ORAL, DAILY, # 90 Tab, 3 Refill(s), Maintenance, Pharmacy: [facility] Active [facility] rology,[facility] Ophthalmol ogy,[facility] tadalafil 5 MG Oral Tablet [Cialis] = 1 Tab, ORAL, DAILY, PRN for erectile dysfunction, Fax to [facility] @ [phone], # 90 Tab, 3 Refill(s), Maintenance, Pharmacy: [facility] Active [facility] Gastroente rology,[facility] Ophthalmol ogy,[facility] Metformin hydrochloride 1000 MG Oral Tablet = 1 Tab, ORAL, BID, # 180 Tab, 3 Refill(s), Maintenance, Pharmacy: [facility] Active [facility] atorvastatin 10 mg oral tablet = 1 Tab, ORAL, DAILY, # 90 Tab, 3 Refill(s), Maintenance, Pharmacy: [facility] Active [facility] Gastroente rology,[facility] Ophthalmol [facility]gy,[facility] ranitidine 150 mg oral tablet = 1 Tab, ORAL, BID, PRN acid reflux, # 180 Tab, 3 Refill(s), Maintenance, Pharmacy: [facility] Active 016 [facility] metFORMIN 1000 mg oral tablet = 1 Tab, ORAL, BID, # 180 Tab, 3 Refill(s), Maintenance, Pharmacy: [facility] Active 016 [facility] Ophthalmol [facility]gy,[facility] Aspirin Low Strength 81 mg oral tablet = 1 Tab, ORAL, DAILY, 0 Refill(s), Maintenance Active 015 [facility] Ophthalmol [facility]gy,[facility] home glu meter + strips + lancets home glu meter + strips + lancets, See Instructions, check glu qd dx 250.00, # 100 ea, 0 Refill(s), Maintenance, Pharmacy: [facility] (Mail Order) Electronic, Supply Active 015 [facility] og,[facility] Results Order Name Results Value Reference Range Date Interpretation Comments Source A1C Glycated Hgbs - Hemoglobin A1C 5.8 % 4.0 - 5.6 2017 [facility] A1C Calculated Mean Blood Glucose 129 mg/dL 2017 [facility] AutoDiff * Auto Neutrophil Percent 62.2 % 42.0 - 74.0 2017 [facility] AutoDiff * Auto Neutrophil Absolute 4.9 K/uL 1.3 - 7.0 2017 [facility] Auto[facility] * Auto Lymphocyte Percent 25.1 % 19.0 - 46.0 2017 [facility] AutoDiff * Auto Lymphocyte Absolute 2.0 K/uL 1.0 - 3.4 2017 [facility] Auto[facility] * Auto Monocyte Percent 7.0 % 2.3 - 11.2 2017 [facility] Auto[facility] * Auto Monocyte Absolute 0.6 K/uL 0.2 - 1.[address] [facility] AutoDiff * Auto Eosinophil Percent 5.0 % - <=6.[address] [facility] AutoDiff * Auto Eosinophil Absolute 0.4 K/uL - <=0.[address] [facility] AutoDiff * Auto Basophil Percent 0.7 % - <=3.[address] [facility] AutoDiff * Auto Basophil Absolute 0.1 K/uL - <=0.[address] [facility] CBC WBC 7.9 K/uL 4.0 - 10.[address] [facility] CBC RBC 4.55 M/mm3 4.40 - 6.[address] [facility] CBC HGB 14.6 gm/dL 14.0 - 16.[address] [facility] CBC HCT 41.7 % 42.0 - 53.[address] [facility] CBC MCV 91.7 fL 77.0 - 96.[address] [facility] CBC MCH 32.0 pg 27.0 - 32.[address] [facility] CBC MCHC 34.9 gm/dL 32.0 - 36.[address] [facility] CBC RDW 12.8 % 12.0 - 16.[address] [facility] CBC PLT 263 K/uL 142 - [address] [facility] CMP Sodium Level 139 mmol/L 136 - 145 2017 [facility] CMP Potassium Level 4.2 mmol/L 3.5 - 5.[address] [facility] CMP Chloride Level 101 mmol/L 98 - 107 2017 [facility] CMP CO2/Carbon Dioxide 31 mmol/L 21 - 31 2017 [facility] Anion Gap 7 2017 [facility] Glucose, Random 138 mg/dL - <=140 2017 [facility] BUN 15 mg/dL 7 - 25 2017 [facility] Creatinine 0.9 mg/dL 0.7 - 1.3 2017 [facility] BUN/Creat Ratio 16.7 15.0 - 24.0 2017 [facility] Osmolality, Calculated 291 mOsm/L 2017 [facility] Calcium Level 9.4 mg/dL 8.6 - 10.3 2017 [facility] Total Protein 6.6 gm/dL 6.0 - 8.3 2017 [facility] Albumin Level 4.5 gm/dL 3.5 - 5.7 2017 [facility] Globulin Level 2.1 gm/dL 2.0 - 4.0 2017 [facility] CMP A/G Ratio 2.1 2017 [facility] CMP ALP 76 IntUnit/ L 34 - 104 2017 [facility] ALT 20 units/L 7 - 52 2017 [facility] CMP AST 15 IntUnit/ L 13 - 39 2017 [facility] CMP Bilirubin, Total 0.6 mg/dL 0.0 - 1.0 2017 [facility] CMP GFR - Non >60 mL/min/1 .73m2 2017 NA Impaired kidney function is indicated by a GFR of <60 mL/min/1.73m2 . The equation used has not been validated for use with persons under 18 or over 70 years of age, women, patients with serious co-morbid conditions, or persons with extremes of body size, muscle mass or nutritional status. [facility] CMP GFR - >60 mL/min/[address] [facility] Diagnostic Reports Report Value Date Source Chest 2 Vw EXAM: Chest 2 Vw ORDERING PROVIDER: Ana Lilia Rojas MD COMPARISON: None. INDICATION: SHORTNESS OF BREATH. TECHNIQUE: PA and lateral views of the chest. FINDINGS: The heart size is within normal limits and the mediastinum is unremarkable. Evaluation lungs and trace no focal acute infiltrate, pneumothorax or pleural effusion. A few small calcifications overlie the left lower lobe, possibly calcified granulomas versus calcified pleural plaques. The bones are within normal limits. IMPRESSION: 1. No evidence of acute pulmonary disease. 2. Small calcifications overlie the left lower lobe, possibly calcified granulomas versus calcified pleural plaque. 01/06/2019 [facility] US Thyroid and Neck EXAM: US Thyroid and Neck ORDERING PROVIDER: Ana Lilia Rojas MD COMPARISON: None. INDICATION: CERVICAL ADENOPATHY. TECHNIQUE: Thyroid ultrasound was performed. FINDINGS: The right lobe measures 5.2 x 2.5 x 2.6 cm. The gland is relatively homogeneous. There is a 7 mm nodule seen inferolaterally on the right. The left lobe measures 4.46 x 2.2 x 1.76 cm. The left lobe is homogeneous in echotexture with no evidence of discrete nodule. The thyroid isthmus measures 0.35 cm in thickness. There do appear to be several normal-appearing cervical lymph nodes. A larger somewhat cortical node appears to be on the right, lying anterior the common carotid bifurcation measuring 2.37 x 0.62 x 1.04 cm. Does demonstrate mild thickening to its rim however typical fatty central hilum is seen. There is no significant increased color Doppler flow. A second lymph node is seen measuring 1.4 x 0.8 cm. Again its rim is mildly thickened without significant increased color Doppler flow. The third node measures 1.9 x 0.4 x 0.13 cm. IMPRESSION: 1. Equivocal cervical lymph nodes. Given the patient's history of melanoma PET scan may be of further value. 2. Small right thyroid nodule at 7 mm. This should be of little clinical concern. 07/29/2018 [facility] Consultation Notes Results Value Date Source Ophthalmology Office/Clinic Note Patient: DWAIN OSPINA Age: 66 years Legal Sex: MALE : 1955 Chief Complaint DIL/ RFX/LAST VISIT 2016 History of Present Illness 66 Years Male here today for general eye exam. 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, has a complex history involving ocular histoplasmosis retinitis, also wet age-related macular degeneration in the right eye treated with multiple injections. Last visit with Dr. Polk was 4 months ago. He is stable, he does not take AREDS vitamins although it is recommended. He had apparently laser treatment for subretinal neovascularization in the right eye 25 years ago, this was probably associated with ocular histo Review of Systems Refer to scanned Ophthalmology Health History Questionnaire Physical Exam Vitals and Measurements HT: 186 cm WT: 119.2 kg BMI: 34.45 kg/m2 Visual Acuity 09/25/2021 15:16 sc cc cCL ph Low Vision Test OD 20/40 OS 20/20 Near vision w glasses OD: J6 OS: J1 Optical Rx History: Glasses Prescription Date: 09/25/2021 Autorefraction 09/25/21 15:16:00 PDT Spherical Cylindrical [place] Vertex OD -1.75 +1.50 009 OS -0.75 +1.25 172 Mood and Affect: Within Normal Limits Alert and Oriented x 3 Confrontation Visual Kessler: Right Eye Full Left Eye Full Sensorimotor: Grossly normal Pupils: Right Eye is Reactive with no APD Left Eye is Reactive with no APD. Pupils are equal. Intraocular Pressure: OD 14 OS 13 @ 09/25/2021 15:33 PDT Dilated Today Using: Paremyd _ in both eyes @ 09/25/2021 15:33 PDT External Exam: Right Eye (OD): Normal Left Eye (OS): Normal Lids/Lashes/Adnexa OD: inflamed lid margin OS: Normal Slit Lamp Exam: Conjunctiva/Sclera OD: White and Quiet OS: White and Quiet Cornea OD: Clear OS: Clear AC OD: Deep and Clear OS: Deep and Clear Iris OD: Flat and round OS: Flat and round Dilated Fundus Exam Media/Vitreous OD: Normal floater OS: Normal Lens OD: 0.5+ Nuclear sclerotic cataract; 0.5+ Cortical cataract OS: _ PCIOL _ _ Optic Nerve OD: 0.3 CDR _ peripapillary atrophy OS: 0.25 CDR _ peripapillary atrophy Macula OD: scar over 1 disc diameter OS: 1+ pigment disruption and drusen Vessels OD: Normal Course and Caliber OS: Normal Course and Caliber Periphery OD: Flat and Attached, histo spots nasally OS: Flat and Attached Scales and Assessments Has advance directive: Yes (09/25/2021 15:16 PDT) Preferred Lab AMB: [facility] (09/25/2021 15:16 PDT) Assessment/Plan _ 1. 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 Exudative age-related macular degeneration of right eye with active choroidal neovascularization (Exudative age-related macular degeneration, right eye, with active choroidal neovascularization, H35.3211) Continue to monitor Ordered: 62533 Office Visit NEW or 45-59 total mins per DOS Return to Clinic Order - AMB, = Physician Visit, As Needed 3. 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 Diabetes type 2 (Type 2 diabetes mellitus without complications, E11.9) No retinopathy at this time Ordered: 51139 Office Visit NEW or 45-59 total mins per DOS Return to Clinic Order - AMB, = Physician Visit, As Needed Scribed by Caleb Beltran, acting as medical insurance claims specialist for Ritchie Slade M.D., on 09/25/2021 The documentation recorded by the Scribe accurately reflects the service I personally performed and the decisions made by , Ritchie Slade M.D., on 09/25/2021 Patient Instructions See notes under assessment/plan Patient Education Diabetes: Meal Planning Follow-Up Patient is moving to [place] Allergies NKA Problem List Active Problems Depression Diabetes type 2 GERD (gastroesophageal reflux disease) Histoplasmosis Retinitis Melanoma in situ Obesity PTSD (post-traumatic stress disorder) Inactive Problems No qualifying data Procedure/Surgical History AH Performed COLONOSCOPY_ (11/03/2017). Patient Reported Arthroscopy of Knee, Dysplastic nevus of skin, Echocardiogram, EKG, Eye injection, H/O laser photocoagulation of retina, H/O mastoidectomy, Holter monitor, Hx of tympanostomy tubes, Hx of vasectomy, Mini-sleep study (01/2015), Overnight pulse oximetry, PDT - Photodynamic therapy, S/p laparoscopic cholecystectomy, S/P LASIK surgery, S/P tonsillectomy and adenoidectomy. Medications Last Documented: 09/25/2021 New Prescriptions None Changed None Unchanged aspirin (Aspirin Low Strength 81 mg oral tablet) 1 Tabs Oral DAILY. atorvastatin (atorvastatin 10 mg oral tablet) 1 Tabs Oral DAILY. Refills: 3. escitalopram (escitalopram 10 mg oral tablet) 1 Tabs Oral DAILY. Refills: 3. levalbuterol (levalbuterol CFC free 45 mcg/inh Inhaler with adapter) 2 Puffs Deep breath EVERY 4 HOURS. Refills: 3. metFORMIN (metFORMIN 1000 mg oral tablet) 1 Tabs Oral TWICE DAILY. Refills: 3. Non-formulary medication (home glu meter + strips + lancets) check glu qddx 250.00. Refills: 0. ranitidine (ranitidine 150 mg oral tablet) 1 Tabs Oral TWICE DAILY as needed acid reflux. Refills: 3. tadalafil (Cialis 5 mg oral tablet) 1 Tabs Oral DAILY as needed for erectile dysfunction. Fax to [facility] @ [phone]. Refills: 3. Discontinued None Social History *Alcohol Screen How often do you have a drink containing alcohol? 2-3 times a week (3). How many standard drinks containing alcohol do you have on a typical day? Never (0), 1 or 2 (0). How often do you have six or more drinks on one occasion? Never (0). Ready to change: No. *Home/Environment Screen Living situation: Home/Independent. Lives with: Significant other. *Nutrition Screen Nutritional Risk: Diabetes out of control or new onset. *Substance Abuse Screen Do you have concerns about substance abuse for yourself or in your household? No. Current or past use? Never. *Tobacco Use Screen Is there a smoker in the household? No. Do you have concerns about tobacco use in household? No. Over the past 30 days, what and how much have you smoked? Never (less than 100 in lifetime). Over the past 30 days, what has been your smokeless tobacco use? Never. Are you ready to quit? N/A. Family History Crohns disease.: Brother. Depression: Mother. Heart disease: Father. Prostate cancer.: Father. [id number] Male 09/25/2021 [facility] - Ophthalmology Pulmonary Function Service Date: 01/19/2019 PULMONARY FUNCTION TEST ORDERING PHYSICIAN: Ana Lilia Rojas FINDINGS: FORCED VITAL CAPACITY: 4.04 L, which is 79% of predicted. FEV1: 2.42 L, which is 63% of predicted. RATIO OF FEV1 TO FORCED VITAL CAPACITY: 60%. [id number]: 1.26 L per second, which is 41% of predicted. MAXIMUM VOLUNTARY VENTILATION: 110 L per minute, which is 76% of predicted. MAXIMUM EXPIRATORY PRESSURE: 93% of predicted. MAXIMUM INSPIRATORY PRESSURE: 145% of predicted. Following the inhalation of bronchodilator, there is a borderline improvement in the FEV1. Flow volume loops show a concavity during the expiratory phase consistent with airway obstruction. TOTAL LUNG CAPACITY: 7.10 L, which is 94% of predicted. RESIDUAL VOLUME: 3.12 L, which is 127% of predicted. EXPIRATORY RESERVE VOLUME: 0.18 L, which is 11% of predicted, consistent with obesity. SINGLE BREATH CARBON MONOXIDE DIFFUSION CAPACITY CORRECTED FOR HEMOGLOBIN: 33.91, which is 94% of predicted. DL/VA ratio is 115% of predicted. Airway resistance is markedly increased, conductance is markedly reduced, and both do improve significantly after inhaled bronchodilator. IMPRESSION: Findings are consistent with moderate obstructive airways disease with borderline improvement after inhaled bronchodilator. Aguilar Samuel RBC, 01/20/2019 14:10:33 PDT. Conf # [id number] , 01/20/2019 15:15:35 PDT. Dictation ID [id number] 01/20/2019 [facility] Provider Letters (Inserted Image. Tri ble to display) December 06 2018 Re: DWAIN OSPINA [address] [place] [address] [place], [place] [id number] : 1955 Date of Visit: 12/01/2018 Jatin Lara MD [address] [place] [address] Fax: To: Dr. Jatin Parry, Please see attached note of recent office visit from Dr. Patel. If you have any questions feel free to contact Amie. Thank you for providing excellent care to our patient. Sincerely, Amie Anderson Pha 12/06/2018 [facility] Provider Letters (Inserted Image. Tri ble to display) December 06 2018 Re: DWAIN OSPINA [address] [place] [id number] : 1955 Date of Visit: 12/01/2018 Kris Sorensen MD [address] [place] [address] To: Dr. Kris Parry, Please see attached note of recent office visit from Dr. Patel. If you have any questions feel free to contact Amie. Thank you for providing excellent care to our patient. Sincerely, Amie Anderson Pha 12/06/2018 [facility] Provider Letters (Inserted Image. Tri ble to display) December 06 2018 Re: DWAIN OSPINA [address], [place] [id number] : 1955 Date of Visit: 12/01/2018 Ana Lilia Rojas [address] [address] To: MD Ana Lilia Parry, Please see attached note of recent office visit from Dr. Patel. If you have any questions feel free to contact Amie. Thank you for providing excellent care to our patient. Sincerely, [facility] The following document(s) were included in the letter: December 01 2018 22:44:00 - (12/01/2018) Medical oncology progress note 12/06/2018 [facility] Oncology Office/Clinic Note Patient: DWAIN OSPINA Age: 63 years Sex: Male : 1955 Author: MD Jorge, [facility] Medical oncology progress note Chief complaint: follow up melanoma in situ and non specific neck nodes HPI: This is 63 y.o male who was diagnised with melanoma in situ by Dr. Kris Sorensen after he presented with a slow ly growing pigmeneted lesion of left cheek for years. Initial biopsy showed melanoma in situ. He then underwent Mohs and recontraction in [facility] with Dr. Campos Miller on 05/02/2018 - path showed again residual melanoma in situ with no invasion, stage 0, pTis. Palpable posterior neck lymph nodes led to US neck on 07/29/2018 which did not suggst any suspicious nodule/nodes of posterior neck but it did mention a few nodes more so on right side, all appear benign w.o increasing blood flow. PET was ordered but was only approved by [facility] for head and neck region which is not done routinely in any facility. He saw me for consult subsequently and I deemded no intervention beside clinical exam. He is now back for 3 months motor exam. In the interim, he reports no significant change regarding the size and consistency of previously palpated lymph node of cervical area. He is otherwise doing well, no neck pain, fever, chills, night sweats, wt loss,. The patient further denies AVILA, vision loss, neck pain, chest pain, CHAO, hemoptysis, abdominal pain, nausea, vomiting, diarrhea, hematochezia, arm pain, skin rash, incontinence. ROS: The rest of 14 points ROS are otherwise unremarkable except I mentioned in HPI. Past medical history: Asthma Depression Diabetes type 2 GERD (gastroesophageal reflux disease) Histoplasmosis Retinitis Melanoma in situ Nocturnal hypoxemia Obesity PTSD (post-traumatic stress disorder) Melanoma in situ Past surgical history: Mini-sleep study: 01/2015 Overnight pulse oximetry Eye injection PDT - Photodynamic therapy Echocardiogram EKG Holter monitor Knee surgery Gall bladder surgery Oncology Specific Family history: Breast cancer: no Ovarian cancer: no Colon cancer: no Uterine cancer: no Melanoma:no Prostate cancer: father prostate cancer in his 70s Lung cancer:no Pancreatic cancer:no Other cancer types: no Cancer diagnosed before age 50: no Social history: Unremarkable Allergy: Allergies (1) Active Reaction NKA None Documented Current medication: Home Medications (8) Active Aspirin Low Strength 81 mg oral tablet 81 mg = 1 Tab, ORAL, DAILY (Ordered 09/04/14) atorvastatin 10 mg oral tablet 10 mg = 1 Tab, ORAL, DAILY (Ordered 04/08/16) Cialis 5 mg oral tablet 5 mg = 1 Tab, PRN, ORAL, DAILY (Ordered 04/08/16) escitalopram 10 mg oral tablet 10 mg = 1 Tab, ORAL, DAILY (Ordered 04/08/16) home glu meter + strips + lancets See Instructions (Ordered 08/24/14) levalbuterol CFC free 45 mcg/inh Inhaler with adapter 2 Puff, INH, Q4H (Ordered 04/08/16) metFORMIN 1000 mg oral tablet 1,000 mg = 1 Tab, ORAL, BID (Ordered 04/08/16) ranitidine 150 mg oral tablet 150 mg = 1 Tab, PRN, ORAL, BID (Ordered 04/08/16) Physical exam: Vitals: Vital Signs (last charted) Pulse: 62 (09/01 11:07) Pulse Ox: Not Charted BP: 132/84 (09/01 11:07) Ox Delivery: Temperature: 97.0 F (36.1 C) (09/01 11:07) Ox %/FiO2: Not Charted Respiration: Not Charted FiO2 set: Not Charted Intensity of pain: 0 (09/01 11:07) General Appearance: No acute distress. Cardiac: Normal rate and rhythm. There is no peripheral edema, cyanosis or pallor. Lungs: Clear to auscultation and percussion without rales, rhonchi, wheezing or diminished breath sounds. Abdomen: Positive bowel sounds. Soft, non-distended, non-tender. No guarding or rebound. No masses. No hepatosplenomegaly. Musculoskeletal: No joint deformity, erythema, or tenderness. Normal gait. Skin: no rash or lesions on limited inspection Heme/nodes: shallow nodes palpated of b/l posterior neck region, semi soft, no pain. R - 1.5 cm X 1 cm, left 1 cm by 1 cm, very shallow non protruding. Psychiatric: Demonstrated good judgment and reason and normal affect during examination. Labs: Labs (Last three charted values) Hgb A1C H 5.8 (05/13/18) 5.6 (09/02/17) Calc Mean Gluc 129 (05/13/18) 122 (09/02/17) WBC 7.9 (05/13/18) 7.7 (09/02/17) RBC 4.55 (05/13/18) 4.77 (09/02/17) Hgb 14.6 (05/13/18) 15.1 (09/02/17) Hct L 41.7 (05/13/18) 43.5 (09/02/17) Mcv 91.7 (05/13/18) 91.2 (09/02/17) Mch 32.0 (05/13/18) 31.7 (09/02/17) Mchc 34.9 (05/13/18) 34.8 (09/02/17) Plt 263 (05/13/18) 267 (09/02/17) Rdw 12.8 (05/13/18) 12.8 (09/02/17) GFR - Non AA >60 (05/13/18) >60 (09/02/17) GFR - AA >60 (05/13/18) >60 (09/02/17) A/G Ratio 2.1 (05/13/18) 1.8 (09/02/17) ALT 20 (05/13/18) 16 (09/02/17) AST 15 (05/13/18) 13 (09/02/17) Albumin Lvl 4.5 (05/13/18) 4.4 (09/02/17) ALP 76 (05/13/18) 72 (09/02/17) Anion Gap 7 (05/13/18) 9 (09/02/17) BUN 15 (05/13/18) 9 (09/02/17) BUN/Cr Ratio 16.7 (05/13/18) L 11.2 (09/02/17) Bili Total 0.6 (05/13/18) 0.8 (09/02/17) CO2 31 (05/13/18) 30 (09/02/17) Calcium Lvl 9.4 (05/13/18) 9.3 (09/02/17) Chloride Lvl 101 (05/13/18) 101 (09/02/17) Creatinine Lvl 0.9 (05/13/18) 0.8 (09/02/17) Globulin Lvl 2.1 (05/13/18) 2.4 (09/02/17) Glucose Random 138 (05/13/18) Osmo Calc 291 (05/13/18) 290 (09/02/17) Potassium Lvl 4.2 (05/13/18) 4.1 (09/02/17) Sodium Lvl 139 (05/13/18) 140 (09/02/17) Total Protein 6.6 (05/13/18) 6.8 (09/02/17) HDL Chol 38.3 (09/02/17) LDL Chol Calc 76 (09/02/17) VLDL Chol Calc 32 (09/02/17) Triglycerides 161 (09/02/17) Radiology: US finding in HPI Assessment and plan: 1. Melanoma in situ of left cheek S/P Mohs Current posterior neck nodes are most likely benign, exam today showed no change compared to 3 months ago. He will do self exam and comes to see me if there is significant growth of lymph nodes otherwise he does not have to see me at regular basis in my clinic. Smooth Patel MD, Hematology and Oncology. CC: PCP: MD Crystal, Ana Lilia Ford, Ney 12/02/2018 [facility] Provider Letters (Inserted Image. Tri ble to display) September 08 2018 Re: DWAIN PIERSON, BRIGITTE [id number] : 1955 Date of Visit: 09/01/2018 Fatoumata Ford M.D. [address] [place] [address] Fax: To: Fatoumata Ford M.D. Thank you for providing excellent care to our patient. Attached you will find Dr. Patel's note. Sincerely, Mis Patel MA The following document(s) were included in the letter: September 01 2018 11:27:00 - (09/01/2018) Medical oncology consultation note 09/08/2018 [facility] Provider Letters (Inserted Image. Tri ble to display) September 08 2018 Re: BRIGITTE ALFONSO DR [id number] : 1955 Date of Visit: 09/01/2018 Kris Sorensen MD [address] [facility] [place] [address] To: Dr. Kris Sorensen MD Thank you for providing excellent care to our patient. Attached you will find Dr. Patel's note. Sincerely, Mis Patel MA The following document(s) were included in the letter: September 01 2018 11:27:00 - (09/01/2018) Medical oncology consultation note 09/08/2018 [facility] Provider Letters (Inserted Image. Tri ble to display) September 08 2018 Re: DWAIN OSPINA [address] [place] [id number] : 1955 Date of Visit: 09/01/2018 Ana Lilia Rojas M.D. [address] [place] [address] To: Dr. Ana Lilia Rojas M.D. Thank you for providing excellent care to our patient. Attached you will find Dr. Patel's note. Sincerely, Mis Patel MA The following document(s) were included in the letter: September 01 2018 11:27:00 - (09/01/2018) Medical oncology consultation note 09/08/2018 [facility] Oncology Office/Clinic Note Patient: DWAIN OSPINA Age: 63 years Sex: Male : 1955 Author: MD Jorge, [facility] Medical oncology consultation I am asked to see this patient in consultation by PCP: MD Rojas Sarah F regarding melanoma in situ and non specific neck nodes. Chief complaint: follow up melanoma in situ and non specific neck nodes HPI: This is 63 y.o male who was diagnised with melanoma in situ by Dr. Kris Sorensen after he presented with a slow ly growing pigmeneted lesion of left cheek for years. Initial biopsy showed melanoma in situ. He then underwent Mohs and recontraction in [facility] with Dr. Campos Miller on 05/02/2018 - path showed again residual melanoma in situ with no invasion, stage 0, pTis. He did well until a month or so ago, he felt a slight indurated area of left posterior neck, then a week or so later a similar nodule right contralateral posterior neck. US neck showed on 07/29/2018 did not suggst any suspicious nodule/nodes of posterior neck but it did mention a few nodes more so on right side, all appear benign w.o increasing blodo flow. PET was ordered but [facility] and neck region which is not done routinely in any facility. He is otherwise doing well, no neck pain, fever, chills, night sweats, wt loss, he had teeth cleaning a month ago, no known chronic head and neck infectious issue, sinus issue, left cheek wound heals well. The patient further denies AVILA, vision loss, neck pain, chest pain, CHAO, hemoptysis, abdominal pain, nausea, vomiting, diarrhea, hematochezia, arm pain, skin rash, incontinence. ROS: The rest of 14 points ROS are otherwise unremarkable except I mentioned in HPI. Past medical history: Asthma Depression Diabetes type 2 GERD (gastroesophageal reflux disease) Histoplasmosis Retinitis Nocturnal hypoxemia Obesity PTSD (post-traumatic stress disorder) Melanoma in situ Past surgical history: Mini-sleep study: 01/2015 Overnight pulse oximetry Eye injection PDT - Photodynamic therapy Echocardiogram EKG Holter monitor Knee surgery Gall bladder surgery Oncology Specific Family history: Breast cancer: no Ovarian cancer: no Colon cancer: no Uterine cancer: no Melanoma:no Prostate cancer: father prostate cancer in his 70s Lung cancer:no Pancreatic cancer:no Other cancer types: no Cancer diagnosed before age 50: no Social history: Unremarkable Allergy: Allergies (1) Active Reaction NKA None Documented Current medication: Home Medications (8) Active Aspirin Low Strength 81 mg oral tablet 81 mg = 1 Tab, ORAL, DAILY (Ordered 09/04/14) atorvastatin 10 mg oral tablet 10 mg = 1 Tab, ORAL, DAILY (Ordered 04/08/16) Cialis 5 mg oral tablet 5 mg = 1 Tab, PRN, ORAL, DAILY (Ordered 04/08/16) escitalopram 10 mg oral tablet 10 mg = 1 Tab, ORAL, DAILY (Ordered 04/08/16) home glu meter + strips + lancets See Instructions (Ordered 08/24/14) levalbuterol CFC free 45 mcg/inh Inhaler with adapter 2 Puff, INH, Q4H (Ordered 04/08/16) metFORMIN 1000 mg oral tablet 1,000 mg = 1 Tab, ORAL, BID (Ordered 04/08/16) ranitidine 150 mg oral tablet 150 mg = 1 Tab, PRN, ORAL, BID (Ordered 04/08/16) Physical exam: Vitals: Vital Signs (last charted) Pulse: 62 (09/01 11:) Pulse Ox: Not Charted BP: 132/84 (09/01 11:07) Ox Delivery: Temperature: 97.0 F (36.1 C) (09/01 11:) Ox %/FiO2: Not Charted Respiration: Not Charted FiO2 set: Not Charted Intensity of pain: 0 (09/01 10:) General Appearance: No acute distress. HEENT: Oral cavity and pharynx normal, left facial post op change, no opening, swelling, draninage Cardiac: Normal rate and rhythm. There is no peripheral edema, cyanosis or pallor. Lungs: Clear to auscultation and percussion without rales, rhonchi, wheezing or diminished breath sounds. Abdomen: Positive bowel sounds. Soft, non-distended, non-tender. No guarding or rebound. No masses. No hepatosplenomegaly. Musculoskeletal: No joint deformity, erythema, or tenderness. Normal gait. Skin: no rash or lesions on limited inspection Heme/nodes: shallow nodes palpated of b/l posterior neck region, semi soft, no pain. R - 1.5 cm X 1 cm, left 1 cm by 1 cm, very shallow non protruding. Psychiatric: Demonstrated good judgment and reason and normal affect during examination. Labs: Labs (Last three charted values) Hgb A1C H 5.8 (05/13/18) 5.6 (09/02/17) Calc Mean Gluc 129 (05/13/18) 122 (09/02/17) WBC 7.9 (05/13/18) 7.7 (09/02/17) RBC 4.55 (05/13/18) 4.77 (09/02/17) Hgb 14.6 (05/13/18) 15.1 (09/02/17) Hct L 41.7 (05/13/18) 43.5 (09/02/17) Mcv 91.7 (05/13/18) 91.2 (09/02/17) Mch 32.0 (05/13/18) 31.7 (09/02/17) Mchc 34.9 (05/13/18) 34.8 (09/02/17) Plt 263 (05/13/18) 267 (09/02/17) Rdw 12.8 (05/13/18) 12.8 (09/02/17) GFR - Non AA >60 (05/13/18) >60 (09/02/17) GFR - AA >60 (05/13/18) >60 (09/02/17) A/G Ratio 2.1 (05/13/18) 1.8 (09/02/17) ALT 20 (05/13/18) 16 (09/02/17) AST 15 (05/13/18) 13 (09/02/17) Albumin Lvl 4.5 (05/13/18) 4.4 (09/02/17) ALP 76 (05/13/18) 72 (09/02/17) Anion Gap 7 (05/13/18) 9 (09/02/17) BUN 15 (05/13/18) 9 (09/02/17) BUN/Cr Ratio 16.7 (05/13/18) L 11.2 (09/02/17) Bili Total 0.6 (05/13/18) 0.8 (09/02/17) CO2 31 (05/13/18) 30 (09/02/17) Calcium Lvl 9.4 (05/13/18) 9.3 (09/02/17) Chloride Lvl 101 (05/13/18) 101 (09/02/17) Creatinine Lvl 0.9 (05/13/18) 0.8 (09/02/17) Globulin Lvl 2.1 (05/13/18) 2.4 (09/02/17) Glucose Random 138 (05/13/18) Osmo Calc 291 (05/13/18) 290 (09/02/17) Potassium Lvl 4.2 (05/13/18) 4.1 (09/02/17) Sodium Lvl 139 (05/13/18) 140 (09/02/17) Total Protein 6.6 (05/13/18) 6.8 (09/02/17) HDL Chol 38.3 (09/02/17) LDL Chol Calc 76 (09/02/17) VLDL Chol Calc 32 (09/02/17) Triglycerides 161 (09/02/17) Radiology: US finding in HPI Assessment and plan: 1. Melanoma in situ of left cheek S/P Mohs Current posterior neck nodes are of little clinical concern at this moment, likely inflamatory and PET if done can give us falsely positive result so I mostly recommend clincal node exam and see me in 3 months, earlier if nodes are more evident. Patient is reassured. Melanoma in situ by definition is not expected to metastasize. Thank you for referring this patient to [facility] hematology and medical oncology clinic, please call me at [phone] for any question. Smooth Patel MD, Hematology and Oncology. CC: PCP: MD Crystal, Ana Lilia Ford, Ney 09/01/2018 [facility] Vital Signs Vital Sign Value Date Comments Source FEV1 2.65 l 01/19/2019 75 [facility] [id number] 63 % 01/19/2019 75 [facility] Oxygen flow 8 L/min 01/19/[address] [facility] Pulse rate 85 bpm 01/19/2019 75 [facility] Pulse Oximetry 98 % 01/19/2019 75 [facility] Respiratory rate 10 br/min 01/19/2019 75 [facility] FEV1 2.42 l 01/19/2019 75 [facility] Pulse Oximetry 97 % 01/19/2019 75 [facility] Oxygen FiO2 21 % 01/19/[address] [facility] [id number] 60 % 01/19/2019 75 [facility] Pulse rate 84 bpm 01/19/2019 75 [facility] Respiratory rate 12 br/min 01/19/2019 75 [facility] Pulse oximetry site Finger (01/19/19 10:45 AM) 01/19/[address] [place] [address] Oxygen delivery Room air (01/19/19 10:45 AM) 01/19/[address] [place] [address] HeightLength (cm) 186 cm 12/01/2018 [facility] Weight (kg) 119.2 kg 12/01/2018 [facility] Dosing Weight Difference 19 % 12/01/2018 [facility] Systolic BP 131 mm[Hg] 12/01/2018 [facility] Diastolic BP 76 mm[Hg] 12/01/2018 [facility] Pulse rate 85 bpm 12/01/2018 [facility] Temperature (F) 97.6 [degF] 12/01/2018 [facility] Body Mass Index 34.45 kg/m2 12/01/2018 [facility] BSA Measured 2.28 m2 12/01/2018 [facility] Temperature (F) 97.0 [degF] 09/01/2018 [facility] Weight (kg) 114.98 kg 09/01/2018 [facility] Systolic BP 132 mm[Hg] 09/01/2018 [facility] Diastolic BP 84 mm[Hg] 09/01/2018 [facility] HeightLength (cm) 186 cm 09/01/2018 [facility] Dosing Weight Difference 15 % 09/01/2018 [facility] Pulse rate 62 bpm 09/01/2018 [facility] Body Mass Index 33.24 kg/m2 09/01/2018 [facility] BSA Measured 2.28 m2 09/01/2018 [facility] Encounters Location Location Details Encounter Type Encounter Number Reason For Visit Attending Provider ADM Date DC Date Status Source 75 75 [facility] Outpatient [id number] [id number] Ana Lilia Rojas 05/14 Active [facility] 75 75 [facility] Outpatient [id number] CERVICAL ADENOPATH Y Ana Lilia Rojas 07/29 Active [facility] UV-UVCTIC UV-UVCTIC [facility] [id number] CONSULTAT ION LEDY PT REQUESTED DATE Smooth Patel 09/01 Active [facility] UV-UVCTIC UV-UVCTIC [facility] [id number] FOLLOW UP 3 WEEK Smooth Patel 12/01 Active [facility] Infusion [place] 75 75 [facility] Outpatient [id number] SHORTNESS OF BREATH Ana Lilia Rojas 01/06 Active [facility] 75 75 [facility] Outpatient [id number] SHORTNESS OF BREATH Ana Lilia Rojas 01/19 Active [facility] UV-UVPCMG O UV-UVPCMG O Clinic [id number] Ritchie Slade 09/25 Active [facility] - Ophthalm ology Procedures Procedure Code Date Perfomer Comments Source COLONOSCOPY_<sup>1</s up> 8 auto-populated from documented surgical case [facility] G[facility]enter[facility] COLONOSCOPY_<sup>1</s up> 8 auto-populated from documented surgical case [facility] COLONOSCOPY_<sup>1</s up> 8 auto-populated from documented surgical case [address] [place] [address] COLONOSCOPY_<sup>1</s up> 8 auto-populated from documented surgical case [facility] Mini-sleep study<sup>2</sup> [id number] 5 Home Sleep Study [facility] Mini-sleep study<sup>2</sup> [id number] 5 Home Sleep Study [facility] Mini-sleep study<sup>2</sup> [id number] 5 Home Sleep Study [address] [place] [address] Mini-sleep study<sup>2</sup> [id number] 5 Home Sleep Study [facility] Arthroscopy of Knee [facility] Dysplastic nevus of skin [id number] [facility] Echocardiogram [id number] [facility] EKG [id number] [facility] Eye injection<sup>3</sup> [id number] Right Eye, eylea injection [facility] H/O laser photocoagulation of retina [facility] H/O mastoidectomy [facility] Holter monitor [id number] [facility] Hx of tympanostomy tubes [facility] Hx of vasectomy [id number] [facility] Overnight pulse oximetry [id number] [facility] PDT - Photodynamic therapy<sup>4</sup> [id number] Scalp for Actentic Keratoses. [facility] S/p laparoscopic cholecystectomy [facility] S/P LASIK surgery [facility] S/P tonsillectomy and adenoidectomy [facility] Arthroscopy of Knee [facility] Dysplastic nevus of skin [id number] [facility] er and Infusion Center Echocardiogram [id number] [facility] EKG [id number] [facility] Eye injection<sup>3</sup> [id number] Right Eye, eylea injection [facility] H/O laser photocoagulation of retina [facility]fusion [facility] H/O mastoidectomy [facility] Holter monitor [id number] [facility] Hx of tympanostomy tubes [facility] er and Infusion Center Hx of vasectomy [id number] [facility] Overnight pulse oximetry [id number] [facility] er [facility] Infusion [facility] PDT - Photodynamic therapy<sup>4</sup> [id number] Scalp for Actentic Keratoses. [facility]fusion [facility] S/p laparoscopic cholecystectomy [facility] C [facility]cer and Infusion Center S/P LASIK surgery [facility] S/P tonsillectomy and adenoidectomy [facility] Can cer and Infusion Center Arthroscopy of Knee 75 [facility] Dysplastic nevus of skin [id number] 75 [facility] Echocardiogram [id number] 75 [facility] EKG [id number] 75 [facility] Eye injection<sup>3</sup> [id number] Right Eye, eylea injection 75 [facility] H/O laser photocoagulation of retina 75 [facility] H/O mastoidectomy 75 [facility] Holter monitor [id number] 75 Ad [facility] Hx of tympanostomy tubes 75 [facility] Hx of vasectomy [id number] 75 A [facility] Overnight pulse oximetry [id number] [facility] PDT - Photodynamic therapy<sup>4</sup> [id number] Scalp for Actentic Keratoses. 75 [facility] S/p laparoscopic cholecystectomy 75 [facility] S/P LASIK surgery 75 [facility] S/P tonsillectomy and adenoidectomy 75 [facility]nee [facility] Dysplastic nevus of skin [id number] [facility] Echocardiogram [id number] [facility] EKG [id number] [facility] Eye injection<sup>3</sup> [id number] Right Eye, eylea injection [facility] H/O laser photocoagulation of retina [facility] H/O mastoidectomy [facility] Holter monitor [id number] [facility] Hx of tympanostomy tubes [facility] Hx of vasectomy [id number] [facility] Overnight pulse oximetry [id number] [facility] PDT - Photodynamic therapy<sup>4</sup> [id number] Scalp for Actentic Keratoses. [facility] S/p laparoscopic cholecystectomy [facility] S/P LASIK surgery [facility] S/P tonsillectomy and adenoidectomy [facility] Plan of Care Plan of Care Date Source Extracted from:Title: Medica l oncology progress note Author: MD Jorge, [place] Date: 12/01/18 Medical oncology progress note Chief complaint: follow up melanoma in situ and non specific neck nodes HPI: This is 63 y.o male who was diagnised with melanoma in situ by Dr. Kris Sorensen after he presented with a slow ly growing pigmeneted lesion of left cheek for years. Initial biopsy showed melanoma in situ. He then underwent Mohs and recontraction in [facility] with Dr. Campos Miller on 05/02/2018 - path showed again residual melanoma in situ with no invasion, stage 0, pTis. Palpable posterior neck lymph nodes led to US neck on 07/29/2018 which did not suggst any suspicious nodule/nodes of posterior neck but it did mention a few nodes more so on right side, all appear benign w.o increasing blood flow. PET was ordered but was only approved by [facility] for head and neck region which is not done routinely in any facility. He saw me for consult subsequently and I deemded no intervention beside clinical exam. He is now back for 3 months motor exam. In the interim, he reports no significant change regarding the size and consistency of previously palpated lymph node of cervical area. He is otherwise doing well, no neck pain, fever, chills, night sweats, wt loss,. The patient further denies AVILA, vision loss, neck pain, chest pain, CHAO, hemoptysis, abdominal pain, nausea, vomiting, diarrhea, hematochezia, arm pain, skin rash, incontinence. ROS: The rest of 14 points ROS are otherwise unremarkable except I mentioned in HPI. Past medical history: Asthma Depression Diabetes type 2 GERD (gastroesophageal reflux disease) Histoplasmosis Retinitis Melanoma in situ Nocturnal hypoxemia Obesity PTSD (post-traumatic stress disorder) Melanoma in situ Past surgical history: Mini-sleep study: 01/2015 Overnight pulse oximetry Eye injection PDT - Photodynamic therapy Echocardiogram EKG Holter monitor Knee surgery Gall bladder surgery Oncology Specific Family history: Breast cancer: no Ovarian cancer: no Colon cancer: no Uterine cancer: no Melanoma:no Prostate cancer: father prostate cancer in his 70s Lung cancer:no Pancreatic cancer:no Other cancer types: no Cancer diagnosed before age 50: no Social history: Unremarkable Allergy: Allergies (1) Active Reaction NKA None Documented Current medication: Home Medications (8) Active Aspirin Low Strength 81 mg oral tablet 81 mg = 1 Tab, ORAL, DAILY?(Ordered?09/04/14) atorvastatin 10 mg oral tablet 10 mg = 1 Tab, ORAL, DAILY?(Ordered?04/08/16) Cialis 5 mg oral tablet 5 mg = 1 Tab, PRN, ORAL, DAILY?(Ordered?04/08/16) escitalopram 10 mg oral tablet 10 mg = 1 Tab, ORAL, DAILY?(Ordered?04/08/16) home glu meter + strips + lancets See Instructions?(Ordered?08/24/14) levalbuterol CFC free 45 mcg/inh Inhaler with adapter 2 Puff, INH, Q4H?(Ordered?04/08/16) metFORMIN 1000 mg oral tablet 1,000 mg = 1 Tab, ORAL, BID?(Ordered?04/08/16) ranitidine 150 mg oral tablet 150 mg = 1 Tab, PRN, ORAL, BID?(Ordered?04/08/16) Physical exam: Vitals: Vital Signs (last charted) Pulse:?62?(09/01 10:)?Pulse Ox:?Not Charted BP:?132/84?? ?(09/01 10:07)?Ox Delivery: Temperature:?? ?97.0 F (36.1 C) ?(09/01 10:07)?Ox %/FiO2:?Not Charted Respiration:?Not Charted?FiO2 set:?Not Charted Intensity of pain:??0 ?(09/01 11:07) General Appearance: No acute distress. Cardiac: Normal rate and rhythm. There is no peripheral edema, cyanosis or pallor. Lungs: Clear to auscultation and percussion without rales, rhonchi, wheezing or diminished breath sounds. Abdomen: Positive bowel sounds. Soft, non-distended, non-tender. No guarding or rebound. No masses. No hepatosplenomegaly. Musculoskeletal: No joint deformity, erythema, or tenderness. Normal gait. Skin: no rash or lesions on limited inspection Heme/nodes: shallow nodes palpated of b/l posterior neck region, semi soft, no pain. R - 1.5 cm X 1 cm, left 1 cm by 1 cm, very shallow non protruding. Psychiatric: Demonstrated good judgment and reason and normal affect during examination. Labs: Labs (Last three charted values) Hgb A1C H 5.8 (05/13/18) 5.6 (09/02/17) Calc Mean Gluc 129 (05/13/18) 122 (09/02/17) WBC 7.9 (05/13/18) 7.7 (09/02/17) RBC 4.55 (05/13/18) 4.77 (09/02/17) Hgb 14.6 (05/13/18) 15.1 (09/02/17) Hct L 41.7 (05/13/18) 43.5 (09/02/17) Mcv 91.7 (05/13/18) 91.2 (09/02/17) Mch 32.0 (05/13/18) 31.7 (09/02/17) Mchc 34.9 (05/13/18) 34.8 (09/02/17) Plt 263 (05/13/18) 267 (09/02/17) Rdw 12.8 (05/13/18) 12.8 (09/02/17) GFR - Non AA >60 (05/13/18) >60 (09/02/17) GFR - AA >60 (05/13/18) >60 (09/02/17) A/G Ratio 2.1 (05/13/18) 1.8 (09/02/17) ALT 20 (05/13/18) 16 (09/02/17) AST 15 (05/13/18) 13 (09/02/17) Albumin Lvl 4.5 (05/13/18) 4.4 (09/02/17) ALP 76 (05/13/18) 72 (09/02/17) Anion Gap 7 (05/13/18) 9 (09/02/17) BUN 15 (05/13/18) 9 (09/02/17) BUN/Cr Ratio 16.7 (05/13/18) L 11.2 (09/02/17) Bili Total 0.6 (05/13/18) 0.8 (09/02/17) CO2 31 (05/13/18) 30 (09/02/17) Calcium Lvl 9.4 (05/13/18) 9.3 (09/02/17) Chloride Lvl 101 (05/13/18) 101 (09/02/17) Creatinine Lvl 0.9 (05/13/18) 0.8 (09/02/17) Globulin Lvl 2.1 (05/13/18) 2.4 (09/02/17) Glucose Random 138 (05/13/18) Osmo Calc 291 (05/13/18) 290 (09/02/17) Potassium Lvl 4.2 (05/13/18) 4.1 (09/02/17) Sodium Lvl 139 (05/13/18) 140 (09/02/17) Total Protein 6.6 (05/13/18) 6.8 (09/02/17) HDL Chol 38.3 (09/02/17) LDL Chol Calc 76 (09/02/17) VLDL Chol Calc 32 (09/02/17) Triglycerides 161 (09/02/17) Radiology: US finding in HPI Assessment and plan: 1. Melanoma in situ of left cheek S/P Mohs Current posterior neck nodes are most likely benign, exam today showed no change compared to 3 months ago. He will do self exam and comes to see me if there is significant growth of lymph nodes otherwise he does not have to see me at regular basis in my clinic. Smooth Patel MD, Hematology and Oncology. 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 the left eye be?getting some?ocular histo?? Probably just?macular degeneration but?I think?I will have him see the retina specialist just to be sure.? If it is AMD he should be on?supplements. Ordered: [id number] Ophthalmic Diag Imaging, Posterior Segment w/ Interp and Report, Unilat/Bilat; Retina [id number] Office Visit Level 4 New Return to Clinic Order - AMB, = Physician Visit, 1 Year Specialty for Referral - AMB, = Other, [place]ook, POHS OD, drusen OS?, STEVE, [facility] ? 04/29/2017 [facility] - Ophthalmology Social History Social History Date Source Social History TypeResponse Smoking Status Is there a smoker in the household? No; *Do you have concerns about tobacco use in household? No; Never (less than 100 in lifetime); Never; *Are you ready to quit? N/A entered on: 09/01/18 03/04/2019 [facility] Social History TypeResponse *Tobacco Use Screen Is there a smoker in the household? No. Do you have concerns about tobacco use in household? No. Over the past 30 days, what and how much have you smoked? Never (less than 100 in lifetime). Over the past 30 days, what has been your smokeless tobacco use? Never. Are you ready to quit? N/A. 12/01/2018 [facility] Social History TypeResponse Smoking Status Is there a smoker in the household? No; *Do you have concerns about tobacco use in household? No; Never (less than 100 in lifetime); Never; *Are you ready to quit? N/A entered on: 09/01/18 09/01/2018 [facility] Social History TypeResponse Smoking Status Is there a smoker in the household? No; *Do you have concerns about tobacco use in household? No; *Over the past 30 days, what and how much have you smoked? Never (less than 100 in lifetime); Never; *Are you ready to quit? N/A entered on: 09/01/18 09/01/[address] [place] [address] n[place] Social History TypeResponse Smoking Status Is there a smoker in the household? No; *Do you have concerns about tobacco use in household? No; *Over the past 30 days, what and how much have you smoked? Never (less than 100 in lifetime); Never; *Are you ready to quit? N/A entered on: 09/01/18 09/01/[address] [place] [address] lley Social History TypeResponse *Tobacco Use Screen Is there a smoker in the household? No. Do you have concerns about tobacco use in household? No. Over the past 30 days, what and how much have you smoked? Never (less than 100 in lifetime). Over the past 30 days, what has been your smokeless tobacco use? Never. Are you ready to quit? N/A. 09/01/2018 [facility] Social History TypeResponse *Tobacco Use Screen Is there a smoker in the household? No. Do you have concerns about tobacco use in household? No. 07/30/2018 [facility] [place] Social History TypeResponse *Tobacco Use Screen Is there a smoker in the household? No. Do you have concerns about tobacco use in household? No. 05/14/2018 [facility] [place] Social History TypeResponse *Tobacco Use Screen Is there a smoker in the household? No. Do you have concerns about tobacco use in household? No. 11/03/2017 [facility] Gastroenterology Social History TypeResponse *Tobacco Use Screen Is there a smoker in the household? No. Do you have concerns about tobacco use in household? No. 11/03/2017 [facility] [place] Social History TypeResponse *Tobacco Use Screen Is there a smoker in the household? No. Do you have concerns about tobacco use in household? No. 11/03/2017 [facility] - Ophthalmology Social History TypeResponse *Tobacco Use Screen Is there a smoker in the household? No. Do you have concerns about tobacco use in household? No. 11/03/[address] [place] [address] lley Social History TypeResponse *Tobacco Use Screen Is there a smoker in the household? No. Do you have concerns about tobacco use in household? No. 11/03/[address] [place] [address] [place]ley Social History TypeResponse *Tobacco Use Screen Is there a smoker in the household? No. Do you have concerns about tobacco use in household? No. 09/03/[address] [place] [address] [place] Social History TypeResponse *Tobacco Use Screen Is there a smoker in the household? No. Do you have concerns about tobacco use in household? No. 09/02/2017 [facility] - Gastroenterology Social History TypeResponse *Tobacco Use Screen Is there a smoker in the household? No. Do you have concerns about tobacco use in household? No. 04/29/2017 [facility] - Ophthalmology
== END 2023-07-03 08:05 | disposition home or self-care (01) ==
LOC: NFLDREF 07-06 08:48
PROVIDERS: PCP Internal Medicine; Referring Provider Internal Medicine; Visit Provider Internal Medicine
DX: E11.9 Type 2 diabetes mellitus without complications (principal); E78.5 Hyperlipidemia, unspecified; Z79.84 Long term (current) use of oral hypoglycemic drugs; Z79.85 Long-term (current) use of injectable non-insulin antidiabetic drugs
CPT/HCPCS: 80053; 80061; 82043; 82570

== ENCOUNTER 2023-07-31 10:00 | Outpatient (RCR) | payer MEDICARE, SELFPAY ==
--- NOTE | 2023-05-21 13:42 | PT.OPEX ---
PT [facility] Eval PT [facility] Outpatient Eval Start: 05/21/23 09:45 Freq: Status: Active Protocol: Document 05/21/23 09:46 DANIELLE (Rec: 05/21/23 13:39 DANIELLE [id number]) E-signed By Carlos Deras PT Physical Therapy Outpatient Evaluation Insurance Information Insurance Name Medicare B,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 He was found to have a RC tear and opted for surgical repair. He underwent a mini open repair on suprapsinatus/infraspinatus along clavical excission and decompression on 05/07/23. He has been wearing a sling with mild pain using only NSAIDs and tylenol thus currently. 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 PMH includes; diabetes, CA, knee pain, and asthma. Pain Comments 2 Date of Last Physician Visit 05/13/23 Date of Surgery (If applicable) 05/07/23 Current Work Status Retired Preferred Name Kelby Objective Other/Pertinent Objective left shoulder AROM is WNL left shoulder strength is WNL Right shoulder PROM: flexion 120 deg; ER 45 deg; abduction 90 deg. hypertonus of right deltoid, bicep, and upper trap muscles. Assessment Assessment/Impression Objectively, pt. demonstrates; good left shoulder AROM and strength; decreased right shoulder PROM as expected due to recent surgery; normal right elbow, wrist and hand AROM; and mild hypertonus/ guarding of right deltoid, bicep, and upper trap areas. He would benefit from skilled therapy working on progressive shoulder ROM with progression into AROM and strengthening per Ortho orders. Primary Functional Limitations lifting, reaching, dressing, weight lifting Plan of Care Rehabilitation Potential Excellent Physical Therapy Goals 1. Pt. will be indep. with HEP for self maintenance in 8 weeks. 2. Pt. will demonstrate functional right shoulder ROM in 8 weeks. 3. Pt. will be able to raise arm overhead for ADL's without difficulty in 8 weeks. 4. Pt. will demonstrate functional right shoulder strength in 16 weeks. Coordination/Communication With Referral Source Treatment Plan/Direct Interventions Joint Mobilization,Manual Therapy,Neuromuscular Re-ed, Self-Care/Home Management, Therapeutic Exercises Frequency/Duration 2 times a week decreasing to weekly and then every other week for 16 weeks. Patient Will Be Discharged From Therapy Independent w/HEP, Independently Progressing Evaluation Billing Complexity Low Certification Information Initial Certification Date 05/21/23 Ending Certification Date 08/19/23 Provider Signature Shows Agreement With POC & Medical Necessity Physician Signature & Date Requested Please Sign/Date Here Physician Comment/Change : Physician NPI Number #
== END 2023-08-04 10:01 | disposition home or self-care (01) ==
PROVIDERS: PCP Internal Medicine; Visit Provider Physician Assistant
DX: Z98.890 Other specified postprocedural states (principal); R29.898 Other symptoms and signs involving the musculoskeletal system; M25.611 Stiffness of right shoulder, not elsewhere classified; M25.511 Pain in right shoulder; Z51.89 Encounter for other specified aftercare
CPT/HCPCS: 97110; 97140; 97161

== ENCOUNTER 2023-10-09 06:58 | Outpatient (CLI) | payer MEDICARE, SELFPAY ==
--- OUTSIDE RECORDS SUMMARY | 2023-10-09 07:01 | XMS_ITS | Summary of Care ---
Author Name Unknown Organization [facility] Address [address] [place] [phone] Phone Care Team Providers Care Mattress Inspector Name Role Phone Ana Lilia Rojas MD Primary Care Provider [phone] Reason for Visit * Reason Comments New Patient 12-22-19 Registration -Dr.Peter Del Toro Encounter Details Date Type Department Care Team Description 12/22/2019 Documentation [facility] CARDIOLOGY [address] [place] [address] Darshan Centeno MD [address] [place] [address] New Patient (12-22-19 Registration-Dr.Peter Del Toro ) Allergies No known active allergiesdocumented as of this encounter (statuses as of 08/18/2023) Active Problems Problem Noted Date Diagnosed Date Dyslipidemia 12/01/2018 Paroxysmal atrial fibrillation 12/01/2018 LETTY on CPAP 12/01/2018 Diabetes mellitus 12/01/2018 documented as of this encounter (statuses as of 08/18/2023) Social History Tobacco Use Types Packs/Day Years Used Date Smoking Tobacco: Never Assessed Sex and Gender Information Value Date Recorded Sex Assigned at Not on file Gender Identity Not on file Sexual Orientation Not on file documented as of this encounter Plan of Treatment Health Maintenance Due Date Last Done Comments CT Colonography 08/12/1973 ColoGuard 08/12/1973 Colonoscopy 08/12/1973 Colorectal Combination Topic 08/12/1973 FIT 08/12/1973 Sigmoidoscopy 08/12/1973 Vaccine: Dtap/Tdap/Td (1 - Tdap) 08/12/1974 Vaccine: RSV Adult (1 - 1-do se 60+ series) 2015 Vaccine: Pneumococcal 65+ (2 of 2 - PCV) 08/12/2020 05/31/2019 COVID-19 Vaccine (4 - 2022- season) 2023 02/15/2021, 06/05/2020, 05/15/2020 Vaccine: Influenza (#1) 2023 02/15/2019 Vaccine: Zoster Completed 12/15/2017, 09/09/2017 documented as of this encounter Care Teams Mattress Inspector Relationship Specialty Start Date End Date Ana Lilia Rojas MD [address] [place] [address] [place] [phone] PCP - General Internal Medicine 01/30/22 documented as of this encounter
--- OUTSIDE RECORDS SUMMARY | 2023-10-09 07:02 | XMS_ITS | Encounter Summary ---
Author Name Unknown Organization [facility] Address [facility] [address] [place] [address] Care Team Providers Care Test Lab Technician Name Role Phone Ana Lilia Rojas MD Primary Care Provider [phone] Reason for Visit * Reason Comments Medication Management 02-03-20 Med Log-Dr Shaniqua Del Toro Encounter Details Date Type Department Care Team (Late st Contact Info) Description 02/03/2020 Documentation [facility] CARDIOLOGY [address] [place] [address] Darshan Centeno MD [address] [place] [address] Medication Management (02-03-20 Med Log-Dr.Peter Del Toro ) Social History Tobacco Use Types Packs/Day Years Used Date Smoking Tobacco: Never Assessed Sex and Gender Information Value Date Recorded Sex Assigned at Not on file Gender Identity Not on file Sexual Orientation Not on file documented as of this encounter Plan of Treatment Not on file documented as of this encounter Visit Diagnoses Not on filedocumented in this encounter Care Teams Test Lab Technician Relationship Specialty Start Date End Date Ana Lilia Rojas MD PCP - General Internal Medicine 01/30/22 documented as of this encounter
--- OUTSIDE RECORDS SUMMARY | 2023-10-09 07:02 | XMS_ITS | Clinical Summary ---
Author Name Unknown Organization [facility] Address [address] [facility] [place] [address] Care Team Providers Care Service Writer Name Role Phone Ana Lilia Rojas MD Primary Care Provider [phone] Source Comments This information has been disclosed [...] or prosecute any alcohol or drug abuse patient.[facility] Allergies No known active allergies Medications Medication [...] of 1 - PCV) 08/12/2020 INFLUENZA VACCINE 12/24/2023 HPV VACCINE Aged Out No longer eligi ble based on patient's age to complete this topic MENINGOCOCCAL ACWY VACCINE Aged Out N o longer eligible based on patient's age to complete this topic Advance Directives For more information, please contact: [phone] Latest Code Status on File Code Status Date Activated Date Inactivated Comments FULL 05/20/2018 12:50 PM Question Answer Comments In ARREST situations: Attempt FULL resus citative efforts (No Restrictions) Care Teams Service Writer Relationship Specialty Start Date End Date Ana Lilia Rojas MD [address] [place] [phone] PCP - General Internal Medicine 05/19/18
--- OUTSIDE RECORDS SUMMARY | 2023-10-09 07:02 | XMS_ITS | Clinical Summary ---
Author Name Unknown Organization [facility] [employer] [facility] Address [facility] [address] [place] [address] Care Team Providers Care Mixing Place Supervisor Name Role Phone Ana Lilia Rojas MD Primary Care Provider [phone] Allergies No known active allergies Medications Medication [...] 2 - PCV) 08/12/2020 05/31/2019 COVID-19 Vaccine ( - season) 2023 02/15/2021, 06/05/2020, 05/15/2020 Vaccine: Influenza (Season Ended) 2024 019 Vaccine: Zoster Completed 12/15/2017, 09/09/[address] Supervisor Relationship Specialty Start Date End Date Ana Lilia Rojas MD PCP - General Internal Medicine 01/30/22
--- OUTSIDE RECORDS SUMMARY | 2023-10-09 07:02 | XMS_ITS | Clinical Summary ---
Author Name Unknown Organization [facility] Address [facility] Medical/[address] [facility] [place] [address] Care Team Providers Care Social Work Manager Name Role Phone Ana Lilia Rojas Barak Primary Care Provider [phone] Allergies No known active allergies Medications No [...] Discussion Benefits and Risk 1955 PSA Discussion SCHOOL BASED THERAPIST 1955 HEPATITIS C SCREENING 08/12/1973 DTAP/TDAP/TD (1 - Tdap) 08/12/1974 Shingrix (Zoster) (1 of 2) 08/12/2005 Advance Care Planning 08/12/2020 Fall Risk Assessment 08/12/2020 Pneumococcal vaccine 65+ (1 of 1 - PCV) 08/12/2020 INFLUENZA 12/23/2022 Covid-19 Vaccine (2022-2 4 season) 2023 HPV VACCINE Aged Out No longer eligi ble based on patient's age to complete this topic Care Teams Social Work Manager Relationship Specialty Start Date End Date Ana Lilia Rojas [address] [address] PCP - General INTERNAL MEDICINE 04/22/18
--- OUTSIDE RECORDS SUMMARY | 2023-10-09 07:02 | XMS_ITS | Patient Health Record ---
Author Name Unknown Organization [facility] Address [address] [place], [place] [address] Care Team Providers Care Assembly Line Leader Name Role Phone Ana Lilia Rojas Primary Care Provider Kris José Unavailable [phone] ALLERGIES No Known Allergies REASON FOR REFERRAL No Information MEDICATIONS Medication SIG (Take, Route, Frequency, Duration) Notes Start Date End Date Status Mupirocin 2 % 1 application Automatic Spinning Lathe Operator ally Twice a day for 14 days 09/24/2021 Active Atorvastatin Calcium Unknown Escitalopram &Lmemopi-Z3-D44-D Unknown Omeprazole Unknown Metformin & Diet Manage Prod Unknown Efudex 5 % 1 application Automatic Spinning Lathe Operator ally Twice a day to scalp for [...] Problem SKs (L82.1) Active confirmed Seborrheic keratosis (113008562) Problem Actinic keratosis (L57.0) Active confirmed Actinic keratosis (668189292) Problem Inflamed seborrheic keratosis (L82.0) Active confirmed Inflamed seborrheic keratosis (086242008) Problem Personal history of malignant melanoma of skin (Z85.820) 03/11/2018 Active confirmed History of malignant melanoma of the skin (261478390434) Problem Personal history of other malignant neoplasm of skin (Z85.828) Active confirmed History of malignant neoplasm of skin (763289256) Problem Eczema (L30.9) Active confirmed Eczema (83955772) Problem 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) Active confirmed Squamous cell carcinoma of scalp (520841604) PLAN OF TREATMENT No Information Insurance Providers Payer Name Payer Address Payer Phone Subscriber Number Group Number Insured Name Patient Relationship to Insured Coverage Start Date Coverage End Date [facility] [address] [place] [phone] [id number] Kelby Julien Self - patient is the insured MEDICAL (GENERAL) HISTORY Medical History History ICD Code asthma Depression Type 1 diabetes Dermatitis Actinic Keratosis Eczema Genital Warts Warts Surgical History Surgery Date(Month/Year) Basal Cell Removed gallbladder Knee Surgery Mastoidectomy
--- OUTSIDE RECORDS SUMMARY | 2023-10-09 07:02 | XMS_ITS | Continuity of Care Document ---
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 06/03/2018 [facility] Ophthalmology Depression(Confirm ed) 03/04/2019 [facility] Cancer [facility] Gastroenterology ,[facility] Ophthalmology,[facility] Diabetes type 2(Confirmed) 03/04/2019 [facility] Gastroenterology ,[facility] Ophthalmology,[facility] GERD (gastroesophageal reflux disease)(Confirmed ) 03/04/2019 [facility] Gastroenterology ,[facility] Ophthalmology,[facility] Histoplasmosis Retinitis(Confirme d) 03/04/2019 [facility] Cancer [facility] Gastroenterology ,[facility] Ophthalmology,[facility] Melanoma in situ(Confirmed) 03/04/2019 [facility] Obesity(Confirmed) 03/04/2019 [facility] Gastroenterology ,[facility] Ophthalmology,[facility] PTSD (post-traumatic stress disorder)(Confirme d) 03/04/2019 [facility] Gastroenterology ,[facility] Ophthalmology,[facility] Encounter for general adult medical examination without abnormal findings 05/21/2018 75 [facility] Encounter for screening for infections with a predominantly sexual mode of transmission 05/21/2018 75 [facility] Encounter for screening for malignant neoplasm of prostate 05/21/2018 75 [facility] Mixed hyperlipidemia 05/21/2018 75 [facility] Type 2 diabetes mellitus without complications 05/21/2018 75 [facility] Medications Medication Details Route Status Patient Instructions Ordering Provider Order Date Source levalbuterol CFC free 45 mcg/inh Inhaler with adapter = 2 Puff, INH, Q4H, # 1 ea, 3 Refill(s), Maintenance, [facility]acy: [facility] Active [facility] rology,[facility] Ophthalmol ogy,[facility] escitalopram 10 mg oral tablet = 1 Tab, ORAL, DAILY, # 90 Tab, 3 Refill(s), Maintenance, Pharmacy: [facility] Active [facility] rology,[facility] Ophthalmol ogy,[facility] tadalafil 5 MG Oral Tablet [Cialis] = 1 Tab, ORAL, DAILY, PRN for erectile dysfunction, Fax to [facility] @ [phone], # 90 Tab, 3 Refill(s), Maintenance, Pharmacy: [facility] Active [facility] Gastroente rology,[facility] Ophthalmol ogy,[facility] Metformin hydrochloride 1000 MG Oral Tablet = 1 Tab, ORAL, BID, # 180 Tab, 3 Refill(s), Maintenance, Pharmacy: [facility] Active [facility] atorvastatin 10 mg oral tablet = 1 Tab, ORAL, DAILY, # 90 Tab, 3 Refill(s), Maintenance, Pharmacy: [facility] Active [facility] Gastroente rology,[facility] Ophthalmol ogy,[facility] ranitidine 150 mg oral tablet = 1 Tab, ORAL, BID, PRN acid reflux, # 180 Tab, 3 Refill(s), Maintenance, Pharmacy: [facility] Active 016 [facility] metFORMIN 1000 mg oral tablet = 1 Tab, ORAL, BID, # 180 Tab, 3 Refill(s), Maintenance, Pharmacy: [facility] Active 016 [facility] Ophthalmol ogy,[facility] Aspirin Low Strength 81 mg oral tablet = 1 Tab, ORAL, DAILY, 0 Refill(s), Maintenance Active 015 [facility] Ophthalmol ogy,[facility] home glu meter + strips + lancets home glu meter + strips + lancets, See Instructions, check glu qd dx 250.00, # 100 ea, 0 Refill(s), Maintenance, Pharmacy: [facility] (Mail Order) Electronic, Supply Active 015 [facility] og,[facility] Results Order Name Results Value Reference Range Date Interpretation Comments Source A1C Glycated Hgbs - Hemoglobin A1C 5.8 % 4.0 - 5.6 2017 [facility] A1C Calculated Mean Blood Glucose 129 mg/dL 2017 [facility] AutoDiff * Auto Neutrophil Percent 62.2 % 42.0 - 74.0 2017 [facility] Auto[facility] * Auto Neutrophil Absolute 4.9 K/uL 1.3 - 7.0 2017 [facility] Auto[facility] * Auto Lymphocyte Percent 25.1 % 19.0 - 46.0 2017 [facility] Auto[facility] * Auto Lymphocyte Absolute 2.0 K/uL 1.0 - 3.4 2017 [facility] Auto[facility] * Auto Monocyte Percent 7.0 % 2.3 - 11.2 2017 [facility] Auto[facility] * Auto Monocyte Absolute 0.6 K/uL 0.2 - 1.6 2017 NA [facility] * Auto Eosinophil Percent 5.0 % - <=6.0 2017 NA [facility] * Auto Eosinophil Absolute 0.4 K/uL - <=0.7 2017 NA [facility] * Auto Basophil Percent 0.7 % - <=3.0 2017 NA [facility] * Auto Basophil Absolute 0.1 K/uL - <=0.2 2017 NA [facility] CBC WBC 7.9 K/uL 4.0 - 10.5 2017 NA [facility] CBC RBC 4.55 M/mm3 4.40 - 6.00 2017 NA [facility] CBC HGB 14.6 gm/dL 14.0 - 16.0 2017 NA [facility] CBC HCT 41.7 % 42.0 - 53.0 2017 L [facility] CBC MCV 91.7 fL 77.0 - 96.0 2017 NA [facility] CBC MCH 32.0 pg 27.0 - 32.0 2017 NA [facility] CBC MCHC 34.9 gm/dL 32.0 - 36.0 2017 NA [facility] CBC RDW 12.8 % 12.0 - 16.0 2017 NA [facility] CBC PLT 263 K/uL 142 - 424 2017 NA [facility] CMP Sodium Level 139 mmol/L 136 - 145 2017 [facility] CMP Potassium Level 4.2 mmol/L 3.5 - 5.1 2017 NA [facility] CMP Chloride Level 101 mmol/L 98 - 107 2017 [facility] CMP CO2/Carbon Dioxide 31 mmol/L 21 - 31 2017 [facility] Anion Gap 7 2017 [facility] Glucose, Random 138 mg/dL - <=140 2017 [facility] BUN 15 mg/dL 7 - 25 2017 [facility] Creatinine 0.9 mg/dL 0.7 - 1.3 2017 [facility] BUN/Creat Ratio 16.7 15.0 - 24.0 2017 [facility] Osmolality, Calculated 291 mOsm/L 2017 [facility] Calcium Level 9.4 mg/dL 8.6 - 10.3 2017 [facility] Total Protein 6.6 gm/dL 6.0 - 8.3 2017 [facility] Albumin Level 4.5 gm/dL 3.5 - 5.7 2017 [facility] Globulin Level 2.1 gm/dL 2.0 - 4.0 2017 [facility] CMP A/G Ratio 2.1 2017 [facility] CMP ALP 76 IntUnit/ L 34 - 104 2017 [facility] ALT 20 units/L 7 - 52 2017 [facility] CMP AST 15 IntUnit/ L 13 - 39 2017 [facility] CMP Bilirubin, Total 0.6 mg/dL 0.0 - 1.0 2017 [facility] CMP GFR - Non >60 mL/min/1 .73m2 2017 NA Impaired kidney function is indicated by a GFR of <60 mL/min/1.73m2 . The equation used has not been validated for use with persons under 18 or over 70 years of age, women, patients with serious co-morbid conditions, or persons with extremes of body size, muscle mass or nutritional status. [facility] CMP GFR - >60 mL/min/1 .73m2 2017 NA [facility] Diagnostic Reports Report Value Date Source Chest [...] calcified granulomas versus calcified pleural plaque. 01/06/2019 [facility] US Thyroid and Neck EXAM: US Thyroid [...] should be of little clinical concern. 07/29/2018 [facility] Consultation Notes Results Value Date Source Ophthalmology Office/Clinic Note Patient: DWAIN OSPINA Age: 66 years Legal Sex: MALE : 1955 Chief Complaint DIL/ RFX/LAST VISIT 2016 History of Present Illness 66 Years Male here today for general eye exam. 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 Exudative age-related macular degeneration of right eye with active choroidal neovascularization (Exudative age-related macular degeneration, right eye, with active choroidal neovascularization, H35.3211) Continue to monitor Ordered: 31677 Office Visit NEW or 45-59 total mins per DOS Return to Clinic Order - AMB, = Physician Visit, As Needed 3. 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 Diabetes type 2 (Type 2 diabetes mellitus without complications, E11.9) No retinopathy at this time Ordered: 07859 Office Visit NEW or 45-59 total mins per DOS Return to Clinic Order - AMB, = Physician Visit, As Needed Scribed by Caleb Beltran, acting as veterinary medical officer for Ritchie Slade M.D., on 09/25/2021 The documentation recorded by the Scribe accurately reflects the service I personally performed and the decisions made by , Ritchie Slade M.D., on 09/25/2021 Patient Instructions See notes under assessment/plan Patient Education Diabetes: Meal Planning Follow-Up Patient is moving to [place] Allergies NKA Problem List Active Problems Depression [...] as needed for erectile dysfunction. Fax to [facility] @ [phone]. Refills: 3. Discontinued None Social History *Alcohol [...] Mother. Heart disease: Father. Prostate cancer.: Father. [id number] Male 09/25/2021 [facility] - Ophthalmology Pulmonary Function Service Date: 01/19/2019 PULMONARY FUNCTION TEST ORDERING PHYSICIAN: Ana Lilia Rojas FINDINGS: FORCED VITAL CAPACITY: 4.04 L, which is 79% of predicted. FEV1: 2.42 L, which is 63% of predicted. RATIO OF FEV1 TO FORCED VITAL CAPACITY: 60%. [id number]: 1.26 L per second, which is 41% [...] Samuel RBC, 01/20/2019 14:10:33 PDT. Conf # [id number] , 01/20/2019 15:15:35 PDT. Dictation ID [id number] 01/20/2019 [facility] Provider Letters (Inserted Image. Tri ble to display) December 06 2018 Re: DWAIN OSPINA [address] [place] [address] [address] [place], [place] [id number] : 1955 Date of Visit: 12/01/2018 Jatin Lara MD [address] [place] [address] Fax: To: Dr. Jatin Parry, Please see attached note of recent office visit from Dr. Patel. If you have any questions feel free to contact Amie. Thank you for providing excellent care to our patient. Sincerely, Amie Anderson Pha 12/06/2018 [facility] Cancer [facility] Provider Letters (Inserted Image. Tri ble to display) December 06 2018 Re: DWAIN OSPINA [address] [place] [id number] : 1955 Date of Visit: 12/01/2018 Kris Sorensen MD [address] [place] [address] To: Dr. Kris Parry, Please see attached note of recent office visit from Dr. Patel. If you have any questions feel free to contact Amie. Thank you for providing excellent care to our patient. Sincerely, Amie Anderson Pha 12/06/2018 [facility] Provider Letters (Inserted Image. Tri ble to display) December 06 2018 Re: DWAIN OSPINA [address], [place] [id number] : 1955 Date of Visit: 12/01/2018 Ana Lilia Rojas [address] [address] To: MD Ana Lilia Parry, Please see attached note of recent office visit from Dr. Patel. If you have any questions feel free to contact Amie. Thank you for providing excellent care to our patient. Sincerely, [facility] The following document(s) were included in the letter: December 01 2018 22:44:00 - (12/01/2018) Medical oncology progress note 12/06/2018 [facility] Oncology Office/Clinic Note Patient: DWAIN OSPINA Age: 63 years Sex: Male : 1955 Author: MD Jorge, [facility] Medical oncology progress note Chief complaint: follow up melanoma in situ and non specific neck nodes HPI: This is 63 y.o male who was diagnised with melanoma in situ by Dr. Kris Sorensen after he presented with a slow ly growing pigmeneted lesion of left cheek for years. Initial biopsy showed melanoma in situ. He then underwent Mohs and recontraction in [facility] with Dr. Campos Miller on 05/02/2018 - [...] was ordered but was only approved by [facility] for head and neck region which is [...] MD Crystal, Ana Lilia Ford, Ney 12/02/2018 [facility] Provider Letters (Inserted Image. Tri ble to display) September 08 2018 Re: DWAIN [place], [place] [id number] : 1955 Date of Visit: 09/01/2018 Fatoumtaa Ford M.D. [address] [place] [address] Fax: To: Fatoumata Ford M.D. Thank you for providing excellent care to our patient. Attached you will find Dr. Patel's note. Sincerely, Mis Patel MA The following document(s) were included in the letter: September 01 2018 11:27:00 - (09/01/2018) Medical oncology consultation note 09/08/2018 [facility] Provider Letters (Inserted Image. Tri ble to display) September 08 2018 Re: [address] DR [id number] : 1955 Date of Visit: 09/01/2018 Kris Sorensen MD [address] [facility] [place] [address] To: Dr. Kris Sorensen MD Thank you for providing excellent care to our patient. Attached you will find Dr. Patel's note. Sincerely, Mis Patel MA The following document(s) were included in the letter: September 01 2018 11:27:00 - (09/01/2018) Medical oncology consultation note 09/08/2018 [facility] Provider Letters (Inserted Image. Tri ble to display) September 08 2018 Re: DWAIN OSPINA [address] [place] [id number] : 1955 Date of Visit: 09/01/2018 Ana Lilia Rojas M.D. [address] [place] [address] To: Dr. Ana Lilia Rojas M.D. Thank you for providing excellent care to our patient. Attached you will find Dr. Patel's note. Sincerely, Mis Patel MA The following document(s) were included in the letter: September 01 2018 11:27:00 - (09/01/2018) Medical oncology consultation note 09/08/[address] [facility] Oncology Office/Clinic Note Patient: DWAIN OSPNIA Age: 63 years Sex: Male : 1955 Author: MD Jorge, [facility] Medical oncology consultation I am [...] He then underwent Mohs and recontraction in [facility] with Dr. Campos Miller on 05/02/2018 - [...] was ordered but was only [facility] for [facility] and neck region which is [...] Thank you for referring this patient to [facility] hematology and medical oncology clinic, please call me at [phone] for any question. Smooth Patel MD, Hematology and Oncology. CC: PCP: MD Crystal, Ana Lilia Ford, Ney 09/01/2018 [facility] Vital Signs Vital Sign Value Date Comments Source FEV1 2.65 l 01/19/2019 75 [facility] [id number] 63 % 01/19/2019 75 [facility] Oxygen flow 8 L/min 01/19/2019 75 [facility] Pulse rate 85 bpm 01/19/2019 75 [facility] Pulse Oximetry 98 % 01/19/2019 75 [facility] Respiratory rate 10 br/min 01/19/2019 75 [facility] FEV1 2.42 l 01/19/2019 75 [facility] Pulse Oximetry 97 % 01/19/2019 75 [facility] Oxygen FiO2 21 % 01/19/2019 75 [facility] [id number] 60 % 01/19/2019 75 [facility] Pulse rate 84 bpm 01/19/2019 75 [facility] Respiratory rate 12 br/min 01/19/2019 75 [facility] Pulse oximetry site Finger (01/19/19 10:45 AM) 01/19/[address] [place] [address] Oxygen delivery Room air (01/19/19 10:45 AM) 01/19/[address] [place] [address] HeightLength (cm) 186 cm 12/01/2018 [facility] Weight (kg) 119.2 kg 12/01/2018 [facility] Dosing Weight Difference 19 % 12/01/2018 [facility] Systolic BP 131 mm[Hg] 12/01/2018 [facility] Diastolic BP 76 mm[Hg] 12/01/2018 [facility] Pulse rate 85 bpm 12/01/2018 [facility] Temperature (F) 97.6 [degF] 12/01/2018 [facility] Body Mass Index 34.45 kg/m2 12/01/2018 [facility] BSA Measured 2.28 m2 12/01/2018 [facility] Temperature (F) 97.0 [degF] 09/01/2018 [facility] Weight (kg) 114.98 kg 09/01/2018 [facility] Systolic BP 132 mm[Hg] 09/01/2018 [facility] Diastolic BP 84 mm[Hg] 09/01/2018 [facility] HeightLength (cm) 186 cm 09/01/2018 [facility] Dosing Weight Difference 15 % 09/01/2018 [facility] Pulse rate 62 bpm 09/01/2018 [facility] Body Mass Index 33.24 kg/m2 09/01/2018 [facility] BSA Measured 2.28 m2 09/01/2018 [facility] Encounters Location Location Details Encounter Type Encounter Number Reason For Visit Attending Provider ADM Date DC Date Status Source 75 75 [facility] Outpatient [id number] E11.9 Ana Lilia Rojas 05/14 Active [facility] 75 75 [facility] Outpatient [id number] CERVICAL ADENOPATH Y Ana Lilia Rojas 07/29 Active [facility] UV-UVCTIC UV-[facility] [id number] CONSULTAT ION LEDY PT REQUESTED DATE Smooth Patel 09/01 Active [facility] UV-UVCTIC UV[facility] [id number] FOLLOW UP 3 WEEK Smooth Patel 12/01 Active [facility] [place] 75 75 [facility] Outpatient [id number] SHORTNESS OF BREATH Ana Lilia Rojas 01/06 Active [facility] 75 75 [facility] Outpatient [id number] SHORTNESS OF BREATH Ana Lilia Rojas 01/19 Active [facility] UV-UVPCMG O UV-UVPCMG O Clinic [id number] Ritchie Slade 09/25 Active [facility] - Ophthalm ology Procedures Procedure Code Date Perfomer Comments Source COLONOSCOPY_<sup>1</s up> 8 auto-populated from documented surgical case [facility] - Gastroenterology COLONOSCOPY_<sup>1</s up> 8 auto-populated from documented surgical case [facility] COLONOSCOPY_<sup>1</s up> 8 auto-populated from documented surgical case [address] [place] [address] COLONOSCOPY_<sup>1</s up> 8 auto-populated from documented surgical case [facility] - Ophthalmology Mini-sleep study<sup>2</sup> [id number] 5 Home Sleep Study [facility] Gastroenterology Mini-sleep study<sup>2</sup> [id number] 5 Home Sleep Study [facility] Mini-sleep study<sup>2</sup> [id number] 5 Home Sleep Study [address] [place] [address] Mini-sleep study<sup>2</sup> [id number] 5 Home Sleep Study [facility] Ophthalmology Arthroscopy of Knee [facility] Dysplastic nevus of skin [id number] [facility] Gastroenterology Echocardiogram [id number] [facility] Gastroenterology EKG [id number] [facility] Gastroenterology Eye injection<sup>3</sup> [id number] Right Eye, eylea injection [facility] H/O laser photocoagulation of retina [facility] Gastroenterology H/O mastoidectomy [facility] Gastroenterology Holter monitor [id number] [facility] Gastroenterology Hx of tympanostomy tubes [facility] Gastroenterology Hx of vasectomy [id number] [facility] Overnight pulse oximetry [id number] [facility] Gastroenter[facility] PDT - Photodynamic therapy<sup>4</sup> [id number] Scalp for Actentic Keratoses. [facility] Gastroenterology S/p laparoscopic cholecystectomy [facility] Gastroenterology S/P LASIK surgery [facility] Gastroenterology S/P tonsillectomy and adenoidectomy [facility] Gastroenterology Arthroscopy of Knee [facility] Dysplastic nevus of skin [id number] [facility] er and Infusion Center Echocardiogram [id number] [facility] EKG [id number] [facility] Eye injection<sup>3</sup> [id number] Right Eye, eylea injection [facility] H/O laser photocoagulation of retina [facility] Can er and Infusion Center H/O mastoidectomy [facility] Holter monitor [id number] [facility] Hx of tympanostomy tubes [facility] er and Infusion Center Hx of vasectomy [id number] [facility] Overnight pulse oximetry [id number] [facility] Can er and Infusion Center PDT - Photodynamic therapy<sup>4</sup> 812399077 Scalp for Actentic Keratoses. [facility]fusion [facility] S/p laparoscopic cholecystectomy [facility] - C [facility]cer and Infusion Center S/P LASIK surgery [facility] S/P tonsillectomy and adenoidectomy [facility] - Can cer and Infusion Center Arthroscopy of Knee 75 [facility] Dysplastic nevus of skin [id number] 75 [facility] Echocardiogram [id number] 75 [facility] EKG [id number] 75 [facility] Eye injection<sup>3</sup> [id number] Right Eye, eylea injection 75 [facility] H/O laser photocoagulation of retina 75 [facility] H/O mastoidectomy 75 [facility] Holter monitor [id number] 75 [facility] Hx of tympanostomy tubes 75 [facility] alth [facility] Hx of vasectomy [id number] 75 [facility] Overnight pulse oximetry [id number] 75 [facility] PDT - Photodynamic therapy<sup>4</sup> 585221555 Scalp for Actentic Keratoses. 75 [facility] S/p laparoscopic cholecystectomy 75 [facility] S/P LASIK surgery 75 [facility] S/P tonsillectomy and adenoidectomy [facility] K[facility] [facility] Ophthalmology Dysplastic nevus of skin [id number] [facility] - Ophthalmology Echocardiogram [id number] [facility] - Ophthalmology EKG [id number] [facility] Ophthalmology Eye injection<sup>3</sup> [id number] Right Eye, eylea injection [facility] Ophthalmology H/O laser photocoagulation of retina [facility]hthalmology H/O mastoidectomy [facility] Ophthalmology Holter monitor [id number] [facility] - Ophthalmology Hx of tympanostomy tubes [facility] - Ophthalmology Hx of vasectomy [id number] [facility] Ophthalmology Overnight pulse oximetry [id number] [facility] Ophthal[facility] PDT - Photodynamic therapy<sup>4</sup> [id number] Scalp for Actentic Keratoses. [facility] - Ophthalmology S/p laparoscopic cholecystectomy [facility] - Ophthalmology S/P LASIK surgery [facility]hthal[facility] S/P tonsillectomy and adenoidectomy [facility] - Ophthalmology Plan of Care Plan [...] He then underwent Mohs and recontraction in [facility] with Dr. Campos Miller on 05/02/2018 - [...] was ordered but was only approved by [facility] for head and neck region which is [...] CC: PCP: MD Crystal, Ana Lilia Ford, [facility] 03/04/2019 [facility] [...] is AMD he should be on?supplements. Ordered: [id number] Ophthalmic Diag Imaging, Posterior Segment w/ Interp and Report, Unilat/Bilat; Retina 58451 Office Visit Level 4 New Return to Clinic Order - AMB, = Physician Visit, 1 Year Specialty for Referral - AMB, = Other, [place], POHS OD, drusen OS?, STEVE, [facility] ? 04/29/2017 [facility] - Ophthalmology Social History Social History Date Source Social History TypeResponse Smoking Status Is there a smoker in the household? No; *Do you have concerns about tobacco use in household? No; Never (less than 100 in lifetime); Never; *Are you ready to quit? N/A entered on: 09/01/18 03/04/2019 [facility] Social History TypeResponse *Tobacco Use Screen Is there a smoker in the household? No. Do you have concerns about tobacco use in household? No. Over the past 30 days, what and how much have you smoked? Never (less than 100 in lifetime). Over the past 30 days, what has been your smokeless tobacco use? Never. Are you ready to quit? N/A. 12/01/2018 [facility] Social History TypeResponse Smoking Status Is there a smoker in the household? No; *Do you have concerns about tobacco use in household? No; Never (less than 100 in lifetime); Never; *Are you ready to quit? N/A entered on: 09/01/18 09/01/2018 [facility] Social History TypeResponse Smoking Status Is there a smoker in the household? No; *Do you have concerns about tobacco use in household? No; *Over the past 30 days, what and how much have you smoked? Never (less than 100 in lifetime); Never; *Are you ready to quit? N/A entered on: 09/01/18 09/01/[address] [place] [address] n[place] Social History TypeResponse Smoking Status Is there a smoker in the household? No; *Do you have concerns about tobacco use in household? No; *Over the past 30 days, what and how much have you smoked? Never (less than 100 in lifetime); Never; *Are you ready to quit? N/A entered on: 09/01/18 09/01/[address] [place] [address] [place] Social History TypeResponse *Tobacco Use Screen Is there a smoker in the household? No. Do you have concerns about tobacco use in household? No. Over the past 30 days, what and how much have you smoked? Never (less than 100 in lifetime). Over the past 30 days, what has been your smokeless tobacco use? Never. Are you ready to quit? N/A. 09/01/2018 [facility] Social History TypeResponse *Tobacco Use Screen Is there a smoker in the household? No. Do you have concerns about tobacco use in household? No. 07/30/2018 [facility] [place]ley Social History TypeResponse *Tobacco Use Screen Is there a smoker in the household? No. Do you have concerns about tobacco use in household? No. 05/14/2018 [facility] [place]ley Social History TypeResponse *Tobacco Use Screen Is there a smoker in the household? No. Do you have concerns about tobacco use in household? No. 11/03/2017 [facility] Gastroenterology Social History TypeResponse *Tobacco Use Screen Is there a smoker in the household? No. Do you have concerns about tobacco use in household? No. 11/03/2017 [facility] l[place] Social History TypeResponse *Tobacco Use Screen Is there a smoker in the household? No. Do you have concerns about tobacco use in household? No. 11/03/2017 [facility] - Ophthalmology Social History TypeResponse *Tobacco Use Screen Is there a smoker in the household? No. Do you have concerns about tobacco use in household? No. 11/03/[address] [place] [address] lley Social History TypeResponse *Tobacco Use Screen Is there a smoker in the household? No. Do you have concerns about tobacco use in household? No. 11/03/[address] [place] [address] lley Social History TypeResponse *Tobacco Use Screen Is there a smoker in the household? No. Do you have concerns about tobacco use in household? No. 09/03/[address] [place] [address] [place] Social History TypeResponse *Tobacco Use Screen Is there a smoker in the household? No. Do you have concerns about tobacco use in household? No. 09/02/2017 [facility] - Gastroenterology Social History TypeResponse *Tobacco Use Screen Is there a smoker in the household? No. Do you have concerns about tobacco use in household? No. 04/29/2017 [facility] - Ophthalmology
--- OUTSIDE RECORDS SUMMARY | 2023-10-09 07:02 | XMS_ITS | Summary of Care ---
Author Name Unknown Organization [facility] Address [address] [place] [phone] Phone Care Team Providers Care Welt Drawer Name Role Phone Ana Lilia Rojas MD Primary Care Provider [phone] Reason for Visit * Reason Comments New Patient 12-27-19 Progress note -Dr.Peter Del Toro Encounter Details Date Type Department Care Team Description 12/27/2019 Documentation [facility]ARD[facility]OLOG[facility] [address] [place] [address] Darshan Centeno MD [address] [place] [address] New Patient (12-27-19 Progress note-Dr.Peter Del Toro ) Allergies No known active [...] documented as of this encounter Care Teams Welt Drawer Relationship Specialty Start Date End Date Ana Lilia Rojas MD [address] [place] [address] [place] [id number] PCP - General Internal Medicine 01/30/22 documented as of this encounter
--- OUTSIDE RECORDS SUMMARY | 2023-10-09 07:02 | XMS_ITS | Referral Summary ---
Author Name Unknown Organization [facility] Address [facility] [address] [place] [address] Care Team Providers Care Tile Setter Name Role Phone Ana Lilia Rojas MD Primary Care Provider [phone] Allergies No known active allergies Medications Medication [...] LETTY on CPAP 12/01/2018 Diabetes mellitus 12/01/2018 Social History Tobacco Use Types Packs/Day Years [...] Mass Index - - Plan of Treatment Not on file Care Teams Tile Setter Relationship Specialty Start Date End Date Ana Lilia Rojas MD PCP - General Internal Medicine 01/30/22
--- OUTSIDE RECORDS SUMMARY | 2023-10-09 07:02 | XMS_ITS | Encounter Summary ---
Author Name Unknown Organization [facility] Address [facility] [address] [place] [address] Care Team Providers Care Mental Health Tech Name Role Phone Ana Lilia Rojas MD Primary Care Provider [phone] Reason for Visit * Reason Comments New Patient 12-27-19 Consultation- Dr.Peter Del Toro Encounter Details Date Type Department Care Team (Late st Contact Info) Description 12/27/2019 Documentation [facility] CARDIOLOG[facility] [address] [place] [address] Darshan Centeno MD [address] [place] [address] New Patient (12-27-19 Consultation-Dr.Peter Del Toro ) Social History Tobacco Use [...] on filedocumented in this encounter Care Teams Mental Health Tech Relationship Specialty Start Date End Date Ana Lilia Rojas MD PCP - General Internal Medicine 01/30/22 documented as of this encounter
--- OUTSIDE RECORDS SUMMARY | 2023-10-09 07:02 | XMS_ITS | Encounter Summary ---
Author Name Unknown Organization [facility] Address [facility] [address] [place] [address] Care Team Providers Care Apprentice Technician Name Role Phone Ana Lilia Rojas MD Primary Care Provider [phone] Reason for Visit * Reason Comments Blood Pressure 02-03-20 BP Log-Dr.Pe Ibarra Encounter Details Date Type Department Care Team (Late st Contact Info) Description 02/03/2020 Documentation [facility] CARDIOLOG[facility] [address] [place] [address] Darshan Centeno MD [address] [place] [address] Blood Pressure (02-03-20 BP Log-Dr.Peter Del Toro ) Social History Tobacco [...] on filedocumented in this encounter Care Teams Apprentice Technician Relationship Specialty Start Date End Date Ana Lilia Rojas MD PCP - General Internal Medicine 01/30/22 documented as of this encounter
--- OUTSIDE RECORDS SUMMARY | 2023-10-09 07:02 | XMS_ITS | Encounter Summary ---
Author Name Unknown Organization [facility] Address [facility] [address] [place] [address] Care Team Providers Care Bottle Blower Name Role Phone Ana Lilia Rojas MD Primary Care Provider [phone] Reason for Visit * Reason Comments Follow-up 02-02-20 Progress not e-Dr.Peter Del Toro Encounter Details Date Type Department Care Team (Late st Contact Info) Description 02/02/2020 Documentation [facility] CARDIOLOG[facility] [address] [place] [address] Darshan Centeno MD [address] [place] [address] Follow-up (02-02-20 Progress note-Dr.Peter Del Toro ) Social History Tobacco Use [...] on filedocumented in this encounter Care Teams Bottle Blower Relationship Specialty Start Date End Date Ana Lilia Rojas MD PCP - General Internal Medicine 01/30/22 documented as of this encounter
--- OUTSIDE RECORDS SUMMARY | 2023-10-09 07:02 | XMS_ITS | Encounter Summary ---
Author Name Unknown Organization [facility] Address [facility] [address] [place] [address] Care Team Providers Care Chief Accountant Name Role Phone Ana Lilia Rojas MD Primary Care Provider [phone] Reason for Visit * Reason Comments New Patient 12-22-19 Cardiology H ealt History-Dr.Peter Del Toro Encounter Details Date Type Department Care Team (Late st Contact Info) Description 12/22/2019 Documentation [facility] CARDIOLOGY [address] [place] [address] Darshan Centeno MD [address] [place] [address] New Patient (12-22-19 Cardiology Health History-Dr.Peter Del Toro ) Social History Tobacco Use [...] on filedocumented in this encounter Care Teams Chief Accountant Relationship Specialty Start Date End Date Ana Lilia Rojas MD PCP - General Internal Medicine 01/30/22 documented as of this encounter
--- NOTE | 2023-10-09 07:15 | MR_ITS ---
[address] [address] Phone:?[phone] Fax:?[phone] Referring Physician Information: Joseph Hidalgo M.D. [address] [facility] [address] Phone:?[phone] Fax:?[phone] Patient:Slava Julien D.O.B:?1955 Sex:?Male Phone:?[phone] [facility] MRN:?[id number] Exam Date:?10/09/2023 EXAM: MRI of the LEFT KNEE, without contrast CLINICAL INFORMATION: Male, 68 years old, with left knee pain. INDICATION: Evaluate for meniscal tear. PRIOR SURGERY: None reported. PLAIN FILMS: None available. COMPARISONS: No prior MRIs available. TECHNICAL INFORMATION: Using a 1.5T MR scanner and a localizing surface coil: sagittals: PD, PDFS coronals: PD, STIR axials: PD, T2FS SEDATION: None CONTRAST: None FINDINGS: Knee joint: Effusion: Small left knee effusion. Popliteal cyst: None. Loose bodies: None. Subcutaneous and extra-articular soft tissues: Moderate anterior subcutaneous soft tissue swelling extending from the patella to the tibial tubercle. Ligaments: ACL: Intact ACL anteromedial and posterolateral bundles, without sprain or tear. PCL: Intact PCL, without acute or chronic injury. MCL: Intact MCL superficial and deep layers, without injury. LCL: Intact LCL, without injury. Posterolateral corner: Mild popliteus tendinopathy, without tear. Biceps femoris, iliotibial band, popliteofibular ligament and lateral gastrocnemius are intact. Posteromedial corner: No posteromedial corner soft tissue injury. Semimembranosus, pes anserine tendons and posterior oblique ligament are without injury, tendinopathy or bursitis. Extensor mechanism: Patellar tendon: Mild proximal patellar tendinopathy. Quadriceps tendon: Mild quadriceps insertional tendinopathy, without tear. Retinacula: Medial and lateral retinacula are intact. Fat pads: Unremarkable infrapatellar Hoffa's, quadriceps and prefemoral fat pads. Medial compartment: Medial meniscus: Complex apical free edge and undersurface tearing of the posterior horn and body of the medial meniscus measuring approximately 5.4 cm, with pypitirhvutk-azfu-xqrcf radial tearing of the mid body segment and 7 mm of meniscal extrusion (sagittal PDFS series 6 images 7-13 and coronal STIR series 8 images 16-24). 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 Lateral compartment: Lateral meniscus: No articular surface, meniscosynovial junction or root tear. No displacement, extrusion or parameniscal cyst. Lateral femoral condyle: No chondromalacia or osteochondral abnormality. Lateral tibial plateau: No chondromalacia or osteochondral abnormality. Patellofemoral joint: Patella: Generalized grade II chondromalacia of the patella, with mild marginal osteophytosis. Trochlea: Broad-based grade II/III chondromalacia of the medial facet and central sulcus of the trochlea, with mild/moderate reactive osseous changes and mild marginal osteophytosis. Proximal tibiofibular joint: Unremarkable, without evidence of ligament sprain injury, joint effusion or adjacent marrow edema. Bones: Approximately 4 x 7 mm area of poorly defined subchondral fracturing of the periphery of the medial tibial plateau, with moderate-marked surrounding bone marrow edema (PD series 7 and coronal STIR series 8 image 19 and sagittal PD series 5 image 17). IMPRESSION: 1. Convex apical free edge and undersurface tearing of the posterior horn and body medial meniscus measuring 5.4 cm, with 7 mm of meniscal extrusion and notable for krfiujwoxvaf-xvhm-lqaer radial tearing of the mid body segment. 2. Approximately 4 x 7 mm area of poorly defined subchondral fracturing of the periphery of the medial tibial plateau, which is likely due to altered medial compartment stress loading given the aforementioned meniscal tear. 3. Moderate osteoarthritis of the medial compartment. 4. Mild osteoarthritis of the patellofemoral compartment. 5. Mild popliteus, patellar and quadriceps tendinopathy, without tear. 6. Small knee joint effusion. No popliteal (Doll's) cyst. 7. No cruciate or collateral ligament sprain/tear. 8. No lateral meniscal tear or osteochondral abnormality lateral compartment. BC Electronically signed on 10/09/2023 9:49:00 AM by Yung Wallace M.D.
== END 2023-10-09 06:59 | disposition home or self-care (01) ==
LOC: MRI 06:59
PROVIDERS: PCP Internal Medicine; Visit Provider Orthopaedic Surgery
DX: M25.562 Pain in left knee (principal); S83.242A Other tear of medial meniscus, current injury, left knee, initial encounter; S82.142A Displaced bicondylar fracture of left tibia, initial encounter for closed fracture; M17.12 Unilateral primary osteoarthritis, left knee; M25.462 Effusion, left knee
CPT/HCPCS: 73721

== ENCOUNTER 2024-07-04 08:44 | Outpatient (CLI) | payer MEDICARE, SELFPAY | END 2024-07-04 08:45 | disposition home or self-care (01) | LOC: NFLDREF 07-08 02:48 | PROVIDERS: PCP Internal Medicine; Referring Provider Internal Medicine; Visit Provider Internal Medicine | DX: E11.9 Type 2 diabetes mellitus without complications (principal); E78.5 Hyperlipidemia, unspecified; Z79.84 Long term (current) use of oral hypoglycemic drugs; Z12.5 Encounter for screening for malignant neoplasm of prostate | CPT/HCPCS: 80053; 80061; 82043; 82570; G0103 ==